=== PATIENT | male | born 1955 | race Caucasian/White ===

== ENCOUNTER 2017-08-25 21:41 | Inpatient (IN) | payer OTHER ==
[2017-08-26 01:29] LABS: Glucose,Whole Blood 118 mg/dL (75-99)
[2017-08-26] MEDS ORDERED: ACETAMINOPHEN TAB 325 MG TAB PO PRN (01:52)
[2017-08-26 05:55] LABS: Glucose,Whole Blood 39 mg/dL (75-99)
[2017-08-26] MEDS: INSULIN ASPART 100 UNIT/ML 1 ML 10 ML VIAL SQ SCH ×4 (05:59→22:36)
[2017-08-26 06:21] LABS: Glucose,Whole Blood 71 mg/dL (75-99)
[2017-08-26 06:29] LABS: HCT 42.4 % (39.0-53.0); HGB 13.6 gm/dL (13.0-17.5); MCH 30.3 pg (25.0-35.0); MCHC 32.2 g/dL (31.0-37.0); MCV 94.3 fL (80.0-100.0); Mean Platelet Volume 8.1; Platelet Count 348 k/uL (150-450); RDW 13.9 % (11.5-15.5); WBC 13.7 k/uL (3.8-10.6)
[2017-08-26 06:36] LABS: ALT 29 U/L (21-72); AST 28 U/L (17-59); Albumin 3.1 g/dL (3.5-5.0); Alkaline Phosphatase 130 U/L (38-126); Anion Gap 7 mmol/L; Blood Urea Nitrogen 32 mg/dL (9-20); Calcium 8.9 mg/dL (8.4-10.2); Carbon Dioxide 27 mmol/L (22-30); Chloride 108 mmol/L (98-107); Phosphorus 2.9 mg/dL (2.5-4.5); Potassium 4.1 mmol/L (3.5-5.1); Sodium 142 mmol/L (137-145); Total Bilirubin 0.4 mg/dL (0.2-1.3); Total Protein 5.7 g/dL (6.3-8.2)
[2017-08-26 06:43] LABS: Glucose 32 mg/dL (74-99)
[2017-08-26] MEDS: SODIUM CHLORIDE 0.9% 1,000 ML IV SCH ×2 (06:52→23:23)
[2017-08-26 07:15] LABS: Eosinophils # (M) 0.14 k/uL (0-0.7); Lymphocytes # (M) 5.62 k/uL (1.0-4.8); Monocytes # (M) 0.69 k/uL (0-1.0); Neutrophils # (M) 7.26 k/uL (1.3-7.7); Neutrophils % (M) 53 %; Nucleated Red Blood Cells 0 /100 WBC (0-0); Total Cells Counted 100
[2017-08-26] MEDS: metFORMIN 500 MG TAB PO SCH (08:17)
[2017-08-26] MEDS: ASPIRIN 325 MG TAB PO SCH (08:21)
[2017-08-26] MEDS: GABAPENTIN 300 MG CAP PO SCH ×3 (08:21→20:34)
[2017-08-26] MEDS: METOPROLOL TARTRATE 25 MG TAB PO SCH ×2 (08:21→20:34)
--- NOTE | 2017-08-26 11:00 | US ---
EXAMINATION TYPE: US carotid duplex BILAT DATE OF EXAM: 08/26/2017 COMPARISON: NONE CLINICAL HISTORY: left side weakness . Left arm and leg weakness per patient. EXAM MEASUREMENTS: RIGHT: Peak Systolic Velocity (PSV) cm/sec ----- Right CCA: 69.1 ----- Right ICA: 64.7 ----- Right ECA: 98.5 ICA/CCA ratio: 0.9 RIGHT: End Diastole cm/sec ----- Right CCA: 8.7 ----- Right ICA: 16.4 ----- Right ECA: 7.3 LEFT: Peak Systolic Velocity (PSV) cm/sec ----- Left CCA: 82.8 ----- Left ICA: 82.3 ----- Left ECA: 249.8 ICA/CCA ratio: 1.0 LEFT: End Diastole cm/sec ----- Left CCA: 16.7 ----- Left ICA: 24.1 ----- Left ECA: 15.6 VERTEBRALS (direction of flow): Right Vertebral: Antegrade Left Vertebral: Antegrade Rhythm: Normal Grayscale images show mild to moderate eccentric plaque at bilateral carotid bulbs. There is slightly more prominent moderate to severe plaque in the visualized left internal carotid artery. Velocity me asurements and ratios in visualized portion of both internal carotid arteries is within normal limits . Increased velocity noted in left external carotid artery. IMPRESSION: Fairly moderate atherosclerotic change bilaterally without hemodynamically significant s tenosis seen in either internal carotid artery
[2017-08-26 11:22] LABS: Glucose,Whole Blood 313 mg/dL (75-99)
[2017-08-26] MEDS: MULTIVITAMINS, THERA 1 EACH TAB PO SCH (12:32)
[2017-08-26] MEDS: LISINOPRIL-HCTZ 20-25 MG 1 EACH TAB PO SCH (12:32)
[2017-08-26] MEDS: DULoxetine HCL 60 MG CAPSULE.DR PO SCH (12:32)
[2017-08-26] MEDS: CHOLECALCIFEROL 1,000 UNIT TAB PO SCH (12:32)
[2017-08-26] MEDS: INSULIN DETEMIR 100 UNIT/ML 10 ML VIAL SQ SCH (12:33)
[2017-08-26 13:10] LABS: Hemoglobin A1C 11.1 % (4.0-6.0)
--- NOTE | 2017-08-26 13:41 | MR ---
EXAMINATION TYPE: MR brain wo con DATE OF EXAM: 08/26/2017 COMPARISON: NONE HISTORY: left side weakness CONTRAST: Performed utilizing 0 mL intravenous Gadavist gadolinium contrast. TECHNIQUE: Multiplanar, multiecho imaging on a 3.0 Gaviota magnet is performed through the brain. Stud y is performed within 24 hours of arrival to the hospital. The craniovertebral junction is normal. The pituitary is normal. Diffusion-weighted imaging is performed. There is hyperintensity in the posterior right periventricu lar region extending into the thalamus and posterior medial right basal ganglion compatible with acut e ischemic change. Correlate with the patient's symptoms. Obvious acute ischemic areas identified on T2 and inversion recovery weighted sequences is well. Ryan tionally, there are scattered punctate deep white matter changes which are nonspecific could be relat ed to microvascular ischemic change. Ventricles and sulci are somewhat prominent for the patient age. IMPRESSIONS: 1. Acute ischemic change in the right zaman radiata adjacent to the right lateral ventricle extendin g into the posterior medial right basal ganglion. 2. Atrophy with punctate white matter ischemic changes.
[2017-08-26 13:45] VITALS: BMI 32.7
--- NOTE | 2017-08-26 15:47 | P.CNNES ---
History of Present Illness Consult date: 08/26/17 Reason for Consult: Patient admitted with left sided weakness and stroke. History of Present Illness: This patient is a 61-year-old right-handed white male who was in his usual state of health on Saturday. Patient states he was at home and was working outdoors when he noticed some generalized weakness. He was just not feeling well. He apparently walked to his truck and fell down and needed to have his brother helped him back into the house. He apparently went from the living room to the kitchen and collapsed again. The family decided to take him to the local hospital in [place] where he was evaluated for generalized weakness. He underwent initial computed tomography scan of the brain which was reported negative and he was advised to follow-up if symptoms recurred. Apparently the patient went home on 08/24/2017 and felt somewhat better. The next day he noticed increasing symptoms of left-sided weakness that seemed to worsen to the point that he could not lift his arm or leg very well. His brother once again had to assist him. He was taken again to the emergency room at [facility] on 08/25/2017 and had a repeat computed tomography scan of the brain performed. This CAT scan revealed areas of decreased attenuation in the right basal ganglia suggesting an acute to subacute stroke. No acute intracranial hemorrhage or midline shift was noted. Due to this finding on the follow-up computed tomography scan of the brain the patient was transferred by EMS to [facility] for further stroke evaluation. Patient denies any previous history of stroke. He does have several stroke risk factors including diabetes mellitus, hyperlipidemia, and hypertension. The patient states that he follows regularly at the [facility] in [place]. He apparently ran out of some of his medications. He states his diabetes is being treated with insulin. He is not aware of his last hemoglobin A1c. The patient was admitted to [facility] late last night. He was able to complete a MRI of the brain today. This MRI was reviewed and does reveal evidence of a acute ischemic change involving the right zaman radiata and adjacent to the right ventricle extending into the right basal ganglia. This appears to be 2 distinct areas of infarction on the MRI study today. We have reviewed the results of the MRI today with the patient. He states he continues to have significant left-sided hemiparesis. His examination today in his room this afternoon reveals him to have a left facial droop as well as significant left- sided hemiparesis involving arm and leg. Muscle strength is 2/5 on his left side. Patient's speech appears to be intact at this time. We have recommended that he should be placed on one adult aspirin 325 mg daily for secondary stroke prevention. We would recommend a cardiology consultation for evaluation for possible LESLI procedure for this patient. His major stroke risk factor at this time appears to be his diabetes mellitus and hyperlipidemia. We will obtain laboratory testing for further assessment. Patient is now admitted for a complete stroke evaluation and further recommendations. Would agree with physical therapy and occupational therapy assessment for the patient. He will likely require inpatient subacute rehab at [facility]. Dr. Braswell has been consulted. This patient's overall prognosis at this time remains guarded. Neurology is now been consulted for further evaluation and recommendations. Review of Systems Constitutional: Denies chills, Denies fever Eyes: denies blurred vision, denies pain Ears, nose, mouth and throat: Denies headache, Denies sore throat Cardiovascular: Denies chest pain, Denies shortness of breath Respiratory: Denies cough Gastrointestinal: Denies abdominal pain, Denies diarrhea, Denies nausea, Denies vomiting Musculoskeletal: Denies myalgias Integumentary: Denies pruritus, Denies rash Neurological: Reports lack of coordination, Reports paresthesias, Reports tingling, Denies numbness, Denies weakness Psychiatric: Denies anxiety, Denies depression Endocrine: Denies fatigue, Denies weight change Past Medical History Past Medical History: Diabetes Mellitus, Hypertension History of Any Multi-Drug Resistant Organisms: None Reported Past Surgical History: Orthopedic Surgery Past Anesthesia/Blood Transfusion Reactions: No Reported Reaction Past Psychological History: Depression Smoking Status: Current every day smoker - Past Family History Mother Family Medical History: Unable to Obtain Father Family Medical History: Unable to Obtain Medications and Allergies Home Medications Medication Instructions Recorded Confirmed Type Aspirin [Adult Low Dose Aspirin EC] 162 mg PO DAILY 08/26/17 08/26/17 History Atorvastatin [Lipitor] 80 mg PO HS 08/26/17 08/26/17 History Cholecalciferol [Vitamin D3] 1,000 unit PO DAILY 08/26/17 08/26/17 History DULoxetine HCL [Cymbalta] 60 mg PO DAILY 08/26/17 08/26/17 History Gabapentin [Neurontin] 600 mg PO TID 08/26/17 08/26/17 History Insulin Aspart [NovoLOG 12 unit SQ AC-TID 08/26/17 08/26/17 History (formulary)] Insulin Aspart [Novolog Flexpen] See Protocol SQ AC-TID 08/26/17 08/26/17 History Insulin Glargine [Lantus] 40 unit SQ HS 08/26/17 08/26/17 History Lisinopril-Hctz 20-25 mg 2 tab PO DAILY 08/26/17 08/26/17 History [Zestoretic 20-25] Metoprolol Tartrate [Lopressor] 25 mg PO BID 08/26/17 08/26/17 History Multivitamin [Men's Multi-Vitamin] 1 tab PO DAILY 08/26/17 08/26/17 History metFORMIN HCL [Glucophage] 500 mg PO DAILY 08/26/17 08/26/17 History Allergies Allergy/AdvReac Type Severity Reaction Status Date / Time "antibiotic that starts with Allergy Unknown Uncoded 08/26/17 01:33 an A" Childhood Physical Examination - Vital Signs Vital Signs: Vital Signs Temp Pulse Pulse Resp BP BP Pulse Ox 08/26/17 11:00 98.3 F 75 16 223/92 97 08/26/17 08:10 97.8 F 65 16 175/78 94 L 08/26/17 04:00 61 18 164/97 94 L 08/26/17 01:52 188/78 178/80 08/26/17 01:15 183/81 212/88 08/26/17 00:52 98.2 F 62 18 192/99 96 Intake and Output 08/26/17 08/26/17 08/26/17 06:59 14:59 22:59 Intake Total 480 Output Total 700 650 Balance -700 -170 Intake: Oral 480 Output: Urine 700 650 Other: Voiding Method Urinal Urinal # Voids 0 Weight 109.5 kg 109.5 kg Patient Weight 08/27/17 06:59 Weight 109.5 kg - Constitutional General appearance: average body habitus, cooperative - EENT EENT: PERRL, mucous membranes moist - Respiratory Respiratory: lungs clear, normal breath sounds - Cardiovascular Cardiovascular: regular rate, normal S1, normal S2 Extremities: no peripheral edema bilaterally - Gastrointestinal Gastrointestinal: normoactive bowel sounds - Integumentary Integumentary: normal - Neurologic Cranial nerve examination: PERRL, EOMI, VFF, V1/V2/V3 grossly intact, tongue midline, intact gag reflex, intact corneal reflex, facial droop (Patient has a left upper motor neuron facial weakness pattern.), normal palatal elevation Speech examination: intact Sensorimotor examination: intact Motor examination - right side: 5/5: biceps, triceps, wrist flexion, wrist extension, food mixer assembler, hip flexors, knee extensors, dorsiflexion, toe extension (EHL) , plantarflexion Motor examination - left side: 2/5: biceps, triceps, wrist flexion, hip flexors , knee extensors, dorsiflexion, toe extension (EHL), plantarflexion, 3/5: wrist extension, food mixer assembler Detailed sensory examination: intact Reflex and gait examination: intact Reflexes: 1+: ankle, bicep, knee, tricep - Musculoskeletal Musculoskeletal: no pain - Psychiatric Psychiatric: mood/affect appropriate, cooperative Results - Laboratory Findings CBC and BMP: 08/26/17 05:36 08/26/17 05:36 Abnormal Lab Findings: Abnormal Labs 08/26/17 08/26/17 08/26/17 01:27 05:36 05:36 WBC 13.7 H Lymphocytes # (Manual) 5.62 H Chloride BUN Glucose POC Glucose (mg/dL) 118 H Hemoglobin A1c 11.1 H Alkaline Phosphatase Total Protein Albumin 08/26/17 08/26/17 08/26/17 05:36 05:53 06:19 WBC Lymphocytes # (Manual) Chloride 108 H BUN 32 H Glucose 32 L* POC Glucose (mg/dL) 39 L 71 L Hemoglobin A1c Alkaline Phosphatase 130 H Total Protein 5.7 L Albumin 3.1 L 08/26/17 11:21 WBC Lymphocytes # (Manual) Chloride BUN Glucose POC Glucose (mg/dL) 313 H Hemoglobin A1c Alkaline Phosphatase Total Protein Albumin Assessment and Plan (1) Acute right arterial ischemic stroke, MCA (middle cerebral artery) Current Visit: Yes Status: Acute Code(s): I63.511 - CEREB INFRC D/T UNSP OCCLS OR STENOS OF RIGHT MID CEREB ART SNOMED Code(s): 756299224 (2) Diabetes mellitus Current Visit: Yes Status: Acute Code(s): E11.9 - TYPE 2 DIABETES MELLITUS WITHOUT COMPLICATIONS SNOMED Code(s): 91366111 (3) Hyperlipidemia Current Visit: Yes Status: Acute Code(s): E78.5 - HYPERLIPIDEMIA, UNSPECIFIED SNOMED Code(s): 30202297 (4) Hypertension Current Visit: Yes Status: Acute Code(s): I10 - ESSENTIAL (PRIMARY) HYPERTENSION SNOMED Code(s): 72022558 Plan: This patient is a 61-year-old male who initially presented to [facility] on Saturday with symptoms of recurrent fall and weak generalized weakness. He was seen in the ER and underwent a computed tomography scan of the brain which was reported negative for any acute changes. He was discharged from the ER to home. He apparently had several falls at home in which his brother had to assist him. He was now noted to have significant left-sided weakness. He was taken back to the emergency room at [facility] for evaluation. He was seen in the ER yesterday at [facility]. He had a repeat computed tomography scan of the brain results of which indicated a possible acute versus subacute stroke in the right basal ganglia. He was transferred last night to [facility] for a complete stroke evaluation. Patient underwent MRI of the brain today the results of which are noted above. MRI does reveal evidence of an acute right MCA stroke in 2 areas of infarction is noted in the MRI. We have recommended a complete stroke evaluation for the patient. He underwent a carotid Doppler ultrasound which failed to reveal any significant carotid artery stenosis. We have recommended the patient to be evaluated by cardiology for possible LESLI procedure. He is to be maintained on one adult aspirin for secondary stroke prevention. Dr. Braswell has been consulted for possible inpatient rehab. We'll await further recommendations from PT OT as well. This patient's overall prognosis at this time remains very guarded. We have discussed the MRI findings in detail today with the patient. All of his questions were answered to the best of our ability. We will continue close neurological follow-up for the patient. His overall prognosis at this time remains very guarded. Time with Patient: Greater than 30
[2017-08-26] MEDS: amLODIPine 5 MG TAB PO SCH (16:07)
[2017-08-26 16:36] LABS: Glucose,Whole Blood 93 mg/dL (75-99)
--- NOTE | 2017-08-26 17:12 | P.HPIM ---
History of Present Illness H&P Date: 08/26/17 Chief Complaint: Left-sided weakness and fall Patient is a 61-year-old male with a known history of hypertension, diabetes type 2 insulin-dependent and diabetic peripheral neuropathy was sent from [facility] for possible acute CVA. Aberrantly patient had generalized weakness after he got out of truck and suddenly collapsed and was on ground for about 45 minutes until his brother found him and called EMS. Patient was taken to [facility] where he had initial CT head which was reported negative and was advised to follow-up if symptoms. Patient says that the next day he noticed increased weakness on the left side and fell again. Patient was taken to ER at [facility] again on 08/25/2017 where he had repeat CT head showed acute to subacute CVA involving right basilar ganglia. Patient was transferred to [facility] for further stroke evaluation. Patient usually follows with [facility] Patient had carotid duplex and MRI was done. MRI showed acute ischemic changes in the right coronary radiata adjacent to the right lateral ventricle extending into the posterior medial right basilar ganglia. Atropine with punctate white matter ischemic changes. LESLI was recommended as per neurology evaluation. Patient otherwise denied any cough or sputum production. No fever no chills. No recent illnesses or sick contacts. Review of Systems Constitutional: Patient denies any fever or chills . No generalized weakness or weight loss. Abdomen: Patient denied nausea vomiting and diarrhea and abdominal pain. Cardiovascular: Patient denies any chest pain or short of breath no palpitations. Respiratory: patient denied any cough is from production. No shortness of breath Neurologic: Left-sided weakness. Patient denied any numbness or tingling headache. Musculoskeletal: Patient denies any complaints of joint swelling or deformity. Skin: Negative Psychiatric: Negative Endocrine: No heat or cold intolerance. No recent weight gain. Genitourinary: No dysuria or hematuria. All other 14 point ROS negative except the above Past Medical History Past Medical History: Diabetes Mellitus, Hypertension History of Any Multi-Drug Resistant Organisms: None Reported Past Surgical History: Orthopedic Surgery Past Anesthesia/Blood Transfusion Reactions: No Reported Reaction Past Psychological History: Depression Smoking Status: Current every day smoker - Past Family History Mother Family Medical History: Unable to Obtain Father Family Medical History: Unable to Obtain Medications and Allergies Home Medications Medication Instructions Recorded Confirmed Type Aspirin [Adult Low Dose Aspirin EC] 162 mg PO DAILY 08/26/17 08/26/17 History Atorvastatin [Lipitor] 80 mg PO HS 08/26/17 08/26/17 History Cholecalciferol [Vitamin D3] 1,000 unit PO DAILY 08/26/17 08/26/17 History DULoxetine HCL [Cymbalta] 60 mg PO DAILY 08/26/17 08/26/17 History Gabapentin [Neurontin] 600 mg PO TID 08/26/17 08/26/17 History Insulin Aspart [NovoLOG 12 unit SQ AC-TID 08/26/17 08/26/17 History (formulary)] Insulin Aspart [Novolog Flexpen] See Protocol SQ AC-TID 08/26/17 08/26/17 History Insulin Glargine [Lantus] 40 unit SQ HS 08/26/17 08/26/17 History Lisinopril-Hctz 20-25 mg 2 tab PO DAILY 08/26/17 08/26/17 History [Zestoretic 20-25] Metoprolol Tartrate [Lopressor] 25 mg PO BID 08/26/17 08/26/17 History Multivitamin [Men's Multi-Vitamin] 1 tab PO DAILY 08/26/17 08/26/17 History metFORMIN HCL [Glucophage] 500 mg PO DAILY 08/26/17 08/26/17 History Allergies Allergy/AdvReac Type Severity Reaction Status Date / Time "antibiotic that starts with Allergy Unknown Uncoded 08/26/17 01:33 an A" Childhood Physical Exam Vitals: Vital Signs Temp Pulse Pulse Resp BP BP Pulse Ox 08/26/17 11:00 98.3 F 75 16 223/92 97 08/26/17 08:10 97.8 F 65 16 175/78 94 L 08/26/17 04:00 61 18 164/97 94 L 08/26/17 01:52 188/78 178/80 08/26/17 01:15 183/81 212/88 08/26/17 00:52 98.2 F 62 18 192/99 96 Intake and Output 08/25/17 08/26/17 08/26/17 22:59 06:59 14:59 Intake Total 240 Output Total 700 Balance -700 240 Intake: Oral 240 Output: Urine 700 Other: Voiding Method Urinal Urinal # Voids 0 Weight 109.5 kg PHYSICAL EXAMINATION: Patient is lying in the bed comfortably, no acute distress, awake alert and oriented.. HEENT: Normocephalic. Neck is supple. Pupils reactive. Nostrils clear. Oral cavity is moist. Ears reveal no drainage. Neck reveals no JVD, carotid bruits, or thyromegaly. CHEST EXAMINATION: Trachea is central. Symmetrical expansion. Lung campos clear to auscultation and percussion. CARDIAC: Normal S1, S2 with no gallops. No murmurs ABDOMEN: Soft. Bowel sounds normal. No organomegaly. No abdominal bruits. Extremities: reveal no edema. No clubbing or cyanosis Neurologically awake, alert, oriented x3 with well-coordinated movements. Left- sided weakness 3/5 motor UE and 2/5 lower extremity. Skin: No rash or skin lesions. Psychiatric: Cooperative. Nonsuicidal Musculoskeletal: No joint swelling or deformity. Normal range of motion. Results CBC & Chem 7: 08/26/17 05:36 08/26/17 05:36 Labs: Abnormal Lab Results - Last 24 Hours (Table) 08/26/17 08/26/17 08/26/17 Range/Units 01:27 05:36 05:36 WBC 13.7 H (3.8-10.6) k/uL Lymphocytes # (Manual) 5.62 H (1.0-4.8) k/uL Chloride 108 H (98-107) mmol/L BUN 32 H (9-20) mg/dL Glucose 32 L* (74-99) mg/dL POC Glucose (mg/dL) 118 H (75-99) mg/dL Alkaline Phosphatase 130 H (38-126) U/L Total Protein 5.7 L (6.3-8.2) g/dL Albumin 3.1 L (3.5-5.0) g/dL 08/26/17 08/26/17 08/26/17 Range/Units 05:53 06:19 11:21 WBC (3.8-10.6) k/uL Lymphocytes # (Manual) (1.0-4.8) k/uL Chloride (98-107) mmol/L BUN (9-20) mg/dL Glucose (74-99) mg/dL POC Glucose (mg/dL) 39 L 71 L 313 H (75-99) mg/dL Alkaline Phosphatase (38-126) U/L Total Protein (6.3-8.2) g/dL Albumin (3.5-5.0) g/dL Thrombosis Risk Factor Assmnt - DVT/VTE Prophylaxis DVT/VTE Prophylaxis: Pharmacologic Prophylaxis ordered - Choose All That Apply Each Factor Represents 1 point: Age 41-60 years Thrombosis Risk Factor Assessment Total Risk Factor Score: 1 Thrombosis Risk Factor Assessment Level: Low Risk Assessment and Plan Assessment: Acute ischemic CVA with left-sided weakness Hypertension Diabetes type 2 insulin-dependent. Uncontrolled with his B A1c 11.1 Hyperlipidemia Diabetic peripheral neuropathy Hypoglycemia DVT prophylaxis Osteoarthritis Plan: Patient be continued on aspirin. Dose increased to 325 mg daily. Will check lipid panel. MRI of the brain was done. Carotid duplex showed no significant stenosis. Neurology is following. Continue with Levemir 40 units subcu along with metformin and sliding scale. We'll monitor CBC closely. Avoid hypoglycemia. Patient able to tolerate oral diet. PT OT was consulted and rehab consulted as well. Further recommendations based on the clinical course. Time with Patient: Greater than 30
--- NOTE | 2017-08-26 19:16 | ECHOF ---
Referral Reason:left side weakness MEASUREMENTS -------- HEIGHT: 182.9 cm WEIGHT: 109.8 kg BP: 164/97 RVIDd: 3.8 cm (< 3.3) IVSd: 1.5 cm (0.6 - 1.1) LVIDd: 3.9 cm (3.9 - 5.3) LVPWd: 1.5 cm (0.6 - 1.1) IVSs: 2.1 cm LVIDs: 2.6 cm LVPWs: 1.7 cm LA Diam: 3.2 cm (2.7 - 3.8) LAESV Index (A-L): 26.28 ml/m Ao Diam: 3.7 cm (2.0 - 3.7) AV Cusp: 2.1 cm (1.5 - 2.6) MV EXCURSION: 18.807 mm (> 18.000) MV EF SLOPE: 126 mm/s (70 - 150) EPSS: 0.3 cm MV E Gordo: 0.95 m/s MV DecT: 320 ms MV A Gordo: 1.17 m/s MV E/A Ratio: 0.81 RAP: 5.00 mmHg RVSP: 14.95 mmHg FINDINGS -------- Sinus rhythm. This was a technically adequate study. The left ventricular size is normal. There is moderate concentric left ventricular hypertrophy. O verall left ventricular systolic function is normal with, an EF between 55 - 60 %. The right ventricle is mildly enlarged. Normal LA size by volume 22+/-6 ml/m2. The right atrium is normal in size. The aortic valve was not well visualized. Mild mitral annular calcification present. Mild tricuspid regurgitation present. Right ventricular systolic pressure is normal at < 35 mmHg. The pulmonic valve was not well visualized. The aortic root is dilated measuring 3.7cm. IVC Not well visulized. There is no pericardial effusion. CONCLUSIONS -------- 1. Sinus rhythm. 2. This was a technically adequate study. 3. The left ventricular size is normal. 4. There is moderate concentric left ventricular hypertrophy. 5. Overall left ventricular systolic function is normal with, an EF between 55 - 60 %. 6. The right ventricle is mildly enlarged. 7. Normal LA size by volume 22+/-6 ml/m2. 8. The right atrium is normal in size. 9. The aortic valve was not well visualized. 10. Mild mitral annular calcification present. 11. Mild tricuspid regurgitation present. 12. Right ventricular systolic pressure is normal at < 35 mmHg. 13. The pulmonic valve was not well visualized. 14. The aortic root is dilated measuring 3.7cm. 15. IVC Not well visulized. 16. There is no pericardial effusion. NEEDLE BOARD REPAIRER: Kathya Ya RDCS
[2017-08-26] MEDS: ATORVASTATIN 80 MG TAB PO SCH (20:34)
[2017-08-26] MEDS: HEPARIN SODIUM,PORCINE 5,000 UNIT/ML 1 ML VIAL SQ SCH (20:34)
[2017-08-26 21:00] LABS: Glucose,Whole Blood 139 mg/dL (75-99)
[2017-08-26] MEDS ORDERED: ATORVASTATIN 20 MG TAB PO SCH (21:00)
[2017-08-26] MEDS ORDERED: INSULIN GLARGINE 40 UNIT SQ SCH (21:00)
[2017-08-27 03:29] LABS: Cholesterol 183 mg/dL (<200); HDL Cholesterol 50 mg/dL (40-60); LDL Cholesterol,Calculated 109 mg/dL (0-99); Triglycerides 119 mg/dL (<150)
[2017-08-27 06:16] LABS: Glucose,Whole Blood 44 mg/dL (75-99)
[2017-08-27] MEDS: INSULIN ASPART 100 UNIT/ML 1 ML 10 ML VIAL SQ SCH ×6 (06:18→21:47)
[2017-08-27] MEDS: metFORMIN 500 MG TAB PO SCH (06:19)
[2017-08-27 06:38] LABS: Glucose,Whole Blood 53 mg/dL (75-99)
[2017-08-27 07:02] LABS: Glucose,Whole Blood 84 mg/dL (75-99)
--- NOTE | 2017-08-27 08:09 | P.CONS ---
History of Present Illness - Chief Complaint Gait disturbance, left hemiparesthesias - History of Present Illness I had the op to see patient for inpatient rehab consultation with regard to gait disturbance. He was admitted to [facility] yesterday acute onset left-sided weakness. Carotid Doppler demonstrates bilateral carotid disease. Brain MRI demonstrates acute attenuation right zaman radiata as well as atrophy and multiple punctate lesions. PT and OT prescribed and I have added SCALER PACKER. Previous functional history as elicited from patient: 61-year-old right-handed white male who is single lives and 2 floor home with brother. Originally from [place]. Brother does the driving. They share the cooking and laundry. Patient is on disability related to left-sided problem. Describes independent with standing shower and gait without device although does describe using cruising technique previously. Unsure if he had left hemiparesthesias previously but denies stroke. Review of Systems Review of systems: ENT: Denies sneezes or discharge. Eyes: Denies discharge or photophobia. Cardiac: Denies chest pain or palpitation. Pulmonary: Denies cough or shortness of breath. Gastrointestinal: Denies nausea, emesis, constipation, diarrhea. Genitourinary: Denies discharge or frequency. Musculoskeletal: Denies muscle or bone aches. Neurologic: Left-sided weakness and numbness. Endocrine: Denies shakes or sweats. Oncology: Denies cancers. Dermatologic: Denies rash, itching, pruritus. ALLERGY/immunology: Denies sneezes, rashes. Past Medical History Past Medical History: Diabetes Mellitus, Hypertension History of Any Multi-Drug Resistant Organisms: None Reported Past Surgical History: Orthopedic Surgery Past Anesthesia/Blood Transfusion Reactions: No Reported Reaction Past Psychological History: Depression Smoking Status: Current every day smoker - Past Family History Mother Family Medical History: Unable to Obtain Father Family Medical History: Unable to Obtain Medications and Allergies Home Medications Medication Instructions Recorded Confirmed Type Aspirin [Adult Low Dose Aspirin EC] 162 mg PO DAILY 08/26/17 08/26/17 History Atorvastatin [Lipitor] 80 mg PO HS 08/26/17 08/26/17 History Cholecalciferol [Vitamin D3] 1,000 unit PO DAILY 08/26/17 08/26/17 History DULoxetine HCL [Cymbalta] 60 mg PO DAILY 08/26/17 08/26/17 History Gabapentin [Neurontin] 600 mg PO TID 08/26/17 08/26/17 History Insulin Aspart [NovoLOG 12 unit SQ AC-TID 08/26/17 08/26/17 History (formulary)] Insulin Aspart [Novolog Flexpen] See Protocol SQ AC-TID 08/26/17 08/26/17 History Insulin Glargine [Lantus] 40 unit SQ HS 08/26/17 08/26/17 History Lisinopril-Hctz 20-25 mg 2 tab PO DAILY 08/26/17 08/26/17 History [Zestoretic 20-25] Metoprolol Tartrate [Lopressor] 25 mg PO BID 08/26/17 08/26/17 History Multivitamin [Men's Multi-Vitamin] 1 tab PO DAILY 08/26/17 08/26/17 History metFORMIN HCL [Glucophage] 500 mg PO DAILY 08/26/17 08/26/17 History Allergies Allergy/AdvReac Type Severity Reaction Status Date / Time "antibiotic that starts with Allergy Unknown Uncoded 08/26/17 01:33 an A" Childhood Physical Exam Vitals: Vital Signs Temp Pulse Pulse Resp BP Pulse Ox 08/27/17 04:00 97 F L 61 18 148/77 94 L 08/27/17 00:00 64 18 169/79 92 L 08/26/17 20:00 98.7 F 71 71 18 185/81 93 L 08/26/17 15:00 64 16 174/84 94 L 08/26/17 11:00 98.3 F 75 16 223/92 97 08/26/17 08:10 97.8 F 65 16 175/78 94 L Intake and Output 08/26/17 08/27/17 08/27/17 22:59 06:59 14:59 Intake Total 240 Output Total 850 1800 Balance -610 -1800 Intake: Oral 240 Output: Urine 850 1800 Other: Voiding Method Urinal Urinal Weight 113 kg Skin: Good color, texture, turgor. General: Medium build and comfortable appearance. Head: Normocephalic, atraumatic. Eyes: Symmetric. Pupils equal round. Ears: Symmetric. Hearing within normal limits. Mouth: Clear. Neck: Supple. Carotid without bruit. Cardiac: Regular rate and rhythm. Lungs: Clear anteriorly and posteriorly. Abdomen: Soft active nontender. Extremities: Normal tone. Neurological: Mental status: Alert, cooperative, pleasant. Cranial nerves: Symmetric facial tone and trapezius. Motor: Normal strength and isolation right side. Active movement left arm with elements of isolation. Left leg poor. Sensation: Intact throughout right side and depressed left side. DTRs: Symmetric and equal throughout. Mobility: Requires minimal to moderate assistance for bed mobility. Results CBC & Chem 7: 08/26/17 05:36 08/26/17 05:36 Labs: Abnormal Lab Results - Last 24 Hours (Table) 08/26/17 08/26/17 08/26/17 Range/Units 05:36 05:36 11:21 POC Glucose (mg/dL) 313 H (75-99) mg/dL Hemoglobin A1c 11.1 H (4.0-6.0) % LDL Cholesterol, Calc 109 H (0-99) mg/dL 08/26/17 08/27/17 08/27/17 Range/Units 20:59 06:13 06:36 POC Glucose (mg/dL) 139 H 44 L 53 L (75-99) mg/dL Hemoglobin A1c (4.0-6.0) % LDL Cholesterol, Calc (0-99) mg/dL MRI - head: report reviewed (Acute lesion right zaman radiata. Atrophy and multiple punctate lesions otherwise.) Assessment and Plan (1) Acute right arterial ischemic stroke, MCA (middle cerebral artery) Current Visit: Yes Status: Acute Code(s): I63.511 - CEREB INFRC D/T UNSP OCCLS OR STENOS OF RIGHT MID CEREB ART SNOMED Code(s): 018747842 Plan: Impression: 1. Gait disturbance. 2. Acute right MCA/zaman radiata infarct resultant left hemiparesthesias. 3. Diabetes. 4. Hypertension. Comments and plan: At this time PT, OT, SCALER PACKER ordered. We'll follow therapies with yourself. Discussed possible need and benefit of inpatient rehab with patient.
[2017-08-27] MEDS: DULoxetine HCL 60 MG CAPSULE.DR PO SCH (08:57)
[2017-08-27] MEDS: ASPIRIN 325 MG TAB PO SCH (08:57)
[2017-08-27] MEDS: LISINOPRIL-HCTZ 20-25 MG 1 EACH TAB PO SCH (08:57)
[2017-08-27] MEDS: METOPROLOL TARTRATE 25 MG TAB PO SCH ×2 (08:57→21:43)
[2017-08-27] MEDS: amLODIPine 5 MG TAB PO SCH (08:57)
[2017-08-27] MEDS: GABAPENTIN 300 MG CAP PO SCH ×3 (08:57→21:44)
[2017-08-27] MEDS: HEPARIN SODIUM,PORCINE 5,000 UNIT/ML 1 ML VIAL SQ SCH ×2 (08:57→21:43)
[2017-08-27] MEDS: INSULIN DETEMIR 100 UNIT/ML 10 ML VIAL SQ SCH ×2 (10:48→13:10)
[2017-08-27 11:30] LABS: Glucose,Whole Blood 411 mg/dL (75-99)
--- NOTE | 2017-08-27 11:45 | P.CRDCN ---
History of Present Illness History of present illness: Patient interviewed and examined. Please see full dictation by nurse practitioner. admitted with an embolic stroke. Sinus mechanism no atrial fibrillation so far we will proceed with a LESLI. If he do not see any atrial fibrillation then an implanted loop monitor will be advised to look for atrial fibrillation. On atorvastatin 80 mg by mouth daily his lipid panel shows an LDL of 109. I would advise starting with Zetia 10 mg in addition to lower his LDL Impression Embolic CVA type 2 diabetes, insulin requiring Hypertension Diabetic peripheral neuropathy Past Medical History Past Medical History: Diabetes Mellitus, Hypertension History of Any Multi-Drug Resistant Organisms: None Reported Past Surgical History: Orthopedic Surgery Past Anesthesia/Blood Transfusion Reactions: No Reported Reaction Past Psychological History: Depression Smoking Status: Current every day smoker - Past Family History Mother Family Medical History: Unable to Obtain Father Family Medical History: Unable to Obtain Medications and Allergies Home Medications Medication Instructions Recorded Confirmed Type Aspirin [Adult Low Dose Aspirin EC] 162 mg PO DAILY 08/26/17 08/26/17 History Atorvastatin [Lipitor] 80 mg PO HS 08/26/17 08/26/17 History Cholecalciferol [Vitamin D3] 1,000 unit PO DAILY 08/26/17 08/26/17 History DULoxetine HCL [Cymbalta] 60 mg PO DAILY 08/26/17 08/26/17 History Gabapentin [Neurontin] 600 mg PO TID 08/26/17 08/26/17 History Insulin Aspart [NovoLOG 12 unit SQ AC-TID 08/26/17 08/26/17 History (formulary)] Insulin Aspart [Novolog Flexpen] See Protocol SQ AC-TID 08/26/17 08/26/17 History Insulin Glargine [Lantus] 40 unit SQ HS 08/26/17 08/26/17 History Lisinopril-Hctz 20-25 mg 2 tab PO DAILY 08/26/17 08/26/17 History [Zestoretic 20-25] Metoprolol Tartrate [Lopressor] 25 mg PO BID 08/26/17 08/26/17 History Multivitamin [Men's Multi-Vitamin] 1 tab PO DAILY 08/26/17 08/26/17 History metFORMIN HCL [Glucophage] 500 mg PO DAILY 08/26/17 08/26/17 History Allergies Allergy/AdvReac Type Severity Reaction Status Date / Time "antibiotic that starts with Allergy Unknown Uncoded 08/26/17 01:33 an A" Childhood Physical Exam Vitals: Vital Signs Temp Pulse Pulse Pulse Resp BP Pulse Ox 08/27/17 08:00 97.7 F 69 18 152/74 95 08/27/17 04:00 97 F L 61 18 148/77 94 L 08/27/17 00:00 64 18 169/79 92 L 08/26/17 20:00 98.7 F 71 71 18 185/81 93 L 08/26/17 15:00 64 16 174/84 94 L Intake and Output 08/26/17 08/27/17 08/27/17 22:59 06:59 14:59 Intake Total 240 240 Output Total 850 1800 400 Balance -610 -1800 -160 Intake: Oral 240 240 Output: Urine 850 1800 400 Other: Voiding Method Urinal Urinal Weight 113 kg Results 08/26/17 05:36 08/26/17 05:36 Lipids 08/26/17 Range/Units 05:36 Triglycerides 119 (<150) mg/dL Cholesterol 183 (<200) mg/dL HDL Cholesterol 50 (40-60) mg/dL Current Medications Generic Name Dose Route Start Last Admin Trade Name Freq PRN Reason Stop Dose Admin Acetaminophen 650 mg 08/26/17 01:52 Tylenol Tab PO Q6HR PRN Fever and/ or Pain Amlodipine Besylate 5 mg 08/26/17 12:45 08/27/17 08:57 Norvasc PO 5 mg DAILY [facility] Administration Aspirin 325 mg 08/26/17 09:00 08/27/17 08:57 Aspirin PO 325 mg DAILY [facility] Administration Atorvastatin Calcium 80 mg 08/26/17 21:00 08/26/17 20:34 Lipitor PO 80 mg HS [facility] Administration Cholecalciferol 1,000 unit 08/26/17 12:00 08/26/17 12:32 Vitamin D3 PO 1,000 unit DAILY@1200 [facility] Administration Duloxetine HCl 60 mg 08/26/17 09:00 08/27/17 08:57 Cymbalta PO 60 mg DAILY [facility] Administration Gabapentin 600 mg 08/26/17 09:00 08/27/17 08:57 Neurontin PO 600 mg TID [facility] Administration Lisinopril/HCTZ 1 each 08/26/17 12:00 08/27/17 08:57 Zestoretic 20-25 PO 1 each DAILY [facility] Administration Heparin Sodium (Porcine) 5,000 unit 08/26/17 21:00 08/27/17 08:57 Heparin SQ 5,000 unit Q12HR [facility] Administration Sodium Chloride 1,000 mls @ 50 mls/hr 08/26/17 06:45 08/26/17 23:23 Saline 0.9% IV 50 mls/hr .Q20H [facility] Administration Insulin Aspart 0 unit 08/26/17 07:30 08/27/17 06:18 Novolog SQ Not Given ACHS [facility] Protocol Insulin Detemir 40 unit 08/26/17 12:30 08/27/17 10:48 Levemir SQ 40 unit DAILY [facility] Administration Metformin HCl 500 mg 08/26/17 07:30 08/27/17 06:19 Glucophage PO Not Given AC-BRKFST [facility] Metoprolol Tartrate 25 mg 08/26/17 09:00 08/27/17 08:57 Lopressor PO 25 mg BID [facility] Administration Multivitamins 1 each 08/26/17 12:00 08/26/17 12:32 Theragran PO 1 each DAILY@1200 [facility] Administration Intake and Output 08/26/17 08/27/17 08/27/17 22:59 06:59 14:59 Intake Total 240 240 Output Total 850 1800 400 Balance -610 -1800 -160 Intake: Oral 240 240 Output: Urine 850 1800 400 Other: Voiding Method Urinal Urinal Weight 113 kg 08/26/17 05:36 08/26/17 05:36
[2017-08-27] MEDS: CHOLECALCIFEROL 1,000 UNIT TAB PO SCH (13:37)
[2017-08-27] MEDS: MULTIVITAMINS, THERA 1 EACH TAB PO SCH (13:37)
--- NOTE | 2017-08-27 15:12 | P.CRDCN ---
History of Present Illness Consult date: 08/27/17 Requesting physician: Raimundo Mackay Reason for Consult (text): CVA Chief complaint: Possible CVA History of present illness: This is a 61-year-old right-handed white male who was in his usual state of health on Saturday. Patient states he was at home and was working outdoors when he noticed some generalized weakness. He was just not feeling well. He apparently walked to his truck and fell down and needed to have his brother helped him back into the house. He apparently went from the living room to the kitchen and collapsed again. The family decided to take him to the local hospital in [place] where he was evaluated for generalized weakness. He underwent initial computed tomography scan of the brain which was reported negative and he was advised to follow-up if symptoms recurred. Apparently the patient went home on 08/24/2017 and felt somewhat better. The next day he noticed increasing symptoms of left-sided weakness that seemed to worsen to the point that he could not lift his arm or leg very well. His brother once again had to assist him. He was taken again to the emergency room at [facility] on 08/25/2017 and had a repeat computed tomography scan of the brain performed. This CAT scan revealed areas of decreased attenuation in the right basal ganglia suggesting an acute to subacute stroke. No acute intracranial hemorrhage or midline shift was noted. Due to this finding on the follow-up computed tomography scan of the brain the patient was transferred by EMS to [facility] for further stroke evaluation. Patient denies any previous history of stroke. He does have several stroke risk factors including diabetes mellitus, hyperlipidemia, and hypertension. The patient states that he follows regularly at the [facility] in [place]. He apparently ran out of some of his medications. He states his diabetes is being treated with insulin. He is not aware of his last hemoglobin A1c. The patient was admitted to [facility] late last night. He was able to complete a MRI of the brain today. This MRI was reviewed and does reveal evidence of a acute ischemic change involving the right zaman radiata and adjacent to the right ventricle extending into the right basal ganglia. This appears to be 2 distinct areas of infarction on the MRI study today. We have reviewed the results of the MRI today with the patient. He states he continues to have significant left-sided hemiparesis. His examination today in his room this afternoon reveals him to have a left facial droop as well as significant left- sided hemiparesis involving arm and leg. Muscle strength is 2/5 on his left side. Patient's speech appears to be intact at this time. Blood pressure elevated this afternoon at 197/90, during the day today has been running in the 140s to 150s systolic. Heart rates in the 60s, he is afebrile. EKG shows a normal sinus rhythm, no evidence of any atrial fibrillation on the monitor thus far. Carotid Doppler study reveals fairly moderate atherosclerotic change bilaterally without hemodynamically significant stenosis. Echocardiogram with Doppler study was performed which revealed an ejection fraction of 55-60%. Cardiology was requested to see the patient to perform a LESLI, this will be done tomorrow by Dr. Dale. The risks and benefits were explained to the patient in detail. Past Medical History Past Medical History: Diabetes Mellitus, Hypertension History of Any Multi-Drug Resistant Organisms: None Reported Past Surgical History: Orthopedic Surgery Past Anesthesia/Blood Transfusion Reactions: No Reported Reaction Past Psychological History: Depression Smoking Status: Current every day smoker - Past Family History Mother Family Medical History: Unable to Obtain Father Family Medical History: Unable to Obtain Medications and Allergies Home Medications Medication Instructions Recorded Confirmed Type Aspirin [Adult Low Dose Aspirin EC] 162 mg PO DAILY 08/26/17 08/26/17 History Atorvastatin [Lipitor] 80 mg PO HS 08/26/17 08/26/17 History Cholecalciferol [Vitamin D3] 1,000 unit PO DAILY 08/26/17 08/26/17 History DULoxetine HCL [Cymbalta] 60 mg PO DAILY 08/26/17 08/26/17 History Gabapentin [Neurontin] 600 mg PO TID 08/26/17 08/26/17 History Insulin Aspart [NovoLOG 12 unit SQ AC-TID 08/26/17 08/26/17 History (formulary)] Insulin Aspart [Novolog Flexpen] See Protocol SQ AC-TID 08/26/17 08/26/17 History Insulin Glargine [Lantus] 40 unit SQ HS 08/26/17 08/26/17 History Lisinopril-Hctz 20-25 mg 2 tab PO DAILY 08/26/17 08/26/17 History [Zestoretic 20-25] Metoprolol Tartrate [Lopressor] 25 mg PO BID 08/26/17 08/26/17 History Multivitamin [Men's Multi-Vitamin] 1 tab PO DAILY 08/26/17 08/26/17 History metFORMIN HCL [Glucophage] 500 mg PO DAILY 08/26/17 08/26/17 History Allergies Allergy/AdvReac Type Severity Reaction Status Date / Time "antibiotic that starts with Allergy Unknown Uncoded 08/26/17 01:33 an A" Childhood Physical Exam Vitals: Vital Signs Temp Pulse Pulse Pulse Resp BP Pulse Ox 08/27/17 12:00 97.3 F L 61 18 197/90 93 L 08/27/17 08:00 97.7 F 69 18 152/74 95 08/27/17 04:00 97 F L 61 18 148/77 94 L 08/27/17 00:00 64 18 169/79 92 L 08/26/17 20:00 98.7 F 71 71 18 185/81 93 L 08/26/17 15:00 64 16 174/84 94 L Intake and Output 08/26/17 08/27/17 08/27/17 22:59 06:59 14:59 Intake Total 240 240 Output Total 850 1800 400 Balance -610 -1800 -160 Intake: Oral 240 240 Output: Urine 850 1800 400 Other: Voiding Method Urinal Urinal Weight 113 kg PHYSICAL EXAMINATION: HEENT: Head is atraumatic, normocephalic. Pupils equal, round. Neck is supple. There is no elevated jugular venous pressure. HEART EXAMINATION: Heart S1, S2 normal. No murmur or gallop heard. CHEST EXAMINATION: Lungs are clear to auscultation and precussion. No chest wall tenderness is noted on palpation or with deep breathing. ABDOMEN: Soft, nontender. Bowel sounds are heard. No organomegaly noted. EXTREMITIES: 2+ peripheral pulses with no evidence of peripheral edema and no calf tenderness noted. NEUROLOGIC patient is awake, alert and oriented -3. Left-sided facial droop noted. . Results 08/26/17 05:36 08/26/17 05:36 Lipids 08/26/17 Range/Units 05:36 Triglycerides 119 (<150) mg/dL Cholesterol 183 (<200) mg/dL HDL Cholesterol 50 (40-60) mg/dL Current Medications Generic Name Dose Route Start Last Admin Trade Name Freq PRN Reason Stop Dose Admin Acetaminophen 650 mg 03/05/18 01:52 Tylenol Tab PO Q6HR PRN Fever and/ or Pain Amlodipine Besylate 5 mg 08/26/17 12:45 08/27/17 08:57 Norvasc PO 5 mg DAILY [facility] Administration Aspirin 81 mg 08/28/17 09:00 Aspirin PO DAILY [facility] Atorvastatin Calcium 80 mg 08/26/17 21:00 08/26/17 20:34 Lipitor PO 80 mg HS [facility] Administration Cholecalciferol 1,000 unit 08/26/17 12:00 08/27/17 13:37 Vitamin D3 PO 1,000 unit DAILY@1200 [facility] Administration Duloxetine HCl 60 mg 08/26/17 09:00 08/27/17 08:57 Cymbalta PO 60 mg DAILY [facility] Administration Ezetimibe 10 mg 08/28/17 09:00 Zetia PO DAILY [facility] Gabapentin 600 mg 08/26/17 09:00 08/27/17 08:57 Neurontin PO 600 mg TID [facility] Administration Lisinopril/HCTZ 1 each 08/26/17 12:00 08/27/17 08:57 Zestoretic 20-25 PO 1 each DAILY [facility] Administration Heparin Sodium (Porcine) 5,000 unit 08/26/17 21:00 08/27/17 08:57 Heparin SQ 5,000 unit Q12HR [facility] Administration Sodium Chloride 1,000 mls @ 50 mls/hr 08/26/17 06:45 08/26/17 23:23 Saline 0.9% IV 50 mls/hr .Q20H [facility] Administration Insulin Aspart 0 unit 08/26/17 07:30 08/27/17 13:37 Novolog SQ 12 unit ACHS [facility] Administration Protocol Insulin Aspart 7 unit 08/27/17 12:30 08/27/17 13:10 Novolog SQ Not Given AC-TID [facility] Insulin Detemir 20 unit 08/27/17 12:00 08/27/17 13:10 Levemir SQ Not Given DAILY [facility] Metformin HCl 500 mg 08/26/17 07:30 08/27/17 06:19 Glucophage PO Not Given AC-BRKFST [facility] Metoprolol Tartrate 25 mg 08/26/17 09:00 08/27/17 08:57 Lopressor PO 25 mg BID [facility] Administration Multivitamins 1 each 08/26/17 12:00 08/27/17 13:37 Theragran PO 1 each DAILY@1200 [facility] Administration Intake and Output 08/26/17 08/27/17 08/27/17 22:59 06:59 14:59 Intake Total 240 240 Output Total 850 1800 400 Balance -610 -1800 -160 Intake: Oral 240 240 Output: Urine 850 1800 400 Other: Voiding Method Urinal Urinal Weight 113 kg 08/26/17 05:36 08/26/17 05:36 EKG Interpretations (text) EKG shows normal sinus rhythm with no acute changes. Assessment and Plan Plan: Assessment and plan #1 acute right arterial ischemic stroke #2 diabetes #3 hypertension #4 hyperlipidemia Plan Echocardiogram with Doppler study was obtained which revealed an ejection fraction of 55-60%. Patient will be scheduled to undergo transesophageal echocardiographic study tomorrow with Dr. Dale. The risks and benefits were explained to the patient in the use willing to proceed. We will also has that he had 10 mg daily to his medication regime. Patient does have elevated blood pressure, we do not acutely want to bring the blood pressure down in the setting of an acute stroke, we will continue to monitor and further recommendations will be made. DNP note has been reviewed, I agree with a documented findings and plan of care. Patient was seen and examined.
[2017-08-27 16:30] LABS: Glucose,Whole Blood 274 mg/dL (75-99)
--- NOTE | 2017-08-27 19:45 | EEG ---
ELECTROENCEPHALOGRAM REPORT DATE OF EE08/27/2017. REFERRING PHYSICIAN: Dr. Mackay. CONSULTING AND INTERPRETING PHYSICIAN: Dr. Lisandra Corey. INDICATION FOR EXAMINATION: This patient is a 61-year-old male, admitted with acute right hemispheric stroke and left-sided hemiparesis. AGE: 61. EEG FINDINGS: A routine 21 channel awake digital EEG recording was accomplished utilizing the 10-20 international system with bipolar and referential montages. The background activity in the most alert resting state consists of a low to medium amplitude, fairly well- developed and well-sustained 6-7 Hz activity over the posterior head regions. This posterior rhythm attenuates to eye opening. There is a small amount of low amplitude 18-20 Hz beta activity seen maximally over the anterior head regions. Muscle and movement artifact was observed on a few occasions during the tracing. Hyperventilation was not performed. Photic stimulation at flash frequencies of 2-30 Hz produced a minimal occipital driving response. No epileptiform discharges were seen. Toward the mid and lateral portion of the tracing, the patient does drift into spontaneous drowsiness. IMPRESSION: This EEG is moderately abnormal in a diffuse fashion due to slowing of the EEG background. The EEG failed to reveal any focal, lateralized or epileptiform abnormalities. Clinical correlation is recommended. MMODL / IJN: [id number] /
--- NOTE | 2017-08-27 20:28 | P.PN ---
Subjective Progress Note Date: 08/27/17 This patient is a 61-year-old male who recently suffered an acute right hemispheric stroke. The patient underwent MRI of the brain yesterday which did reveal evidence of 2 areas of acute ischemic stroke. We had recommended cardiology consultation for evaluation of need for LESLI procedure. He was seen by cardiology today and is being scheduled for LESLI procedure tomorrow. They're monitoring his blood pressure closely at this time. The patient was seen today by Dr. Braswell for possible inpatient rehab placement. He is awaiting further assessment from PT /OT and may be a good candidate for inpatient rehab at the time of discharge. Patient states he has been doing fairly well with slight improvement with this left-sided weakness. He is to continue on his aspirin and atorvastatin at this time for secondary stroke prevention. We will await further evaluation from cardiology and the LESLI testing to be completed tomorrow and will await their further recommendations. We will continue close neurological follow-up for the patient during this admission. Objective - Vital Signs Vital signs: Vital Signs Temp 98.4 F 08/27/17 16:00 Pulse 72 08/27/17 16:00 Resp 18 08/27/17 16:00 BP 173/83 08/27/17 16:00 Pulse Ox 93 L 08/27/17 16:00 Intake & Output 08/27/17 08/27/17 08/28/17 06:59 18:59 06:59 Intake Total 1360 Output Total 2300 1150 450 Balance -2300 210 -450 Weight 113 kg Intake: Intake, IV Titration 400 Amount Sodium Chloride 0.9% 1, 400 000 ml @ 50 mls/hr IV . Q20H [facility] Rx#:[id number] Oral 960 Output: Urine 2300 1150 450 Other: Voiding Method Urinal # Voids 1 # Bowel Movements 0 - Exam Physical examination: PHYSICAL EXAMINATION: Patient is resting comfortably in bed. VITAL SIGNS: Blood pressure is [173/83]. Heart rate is [72]. Respiration is [18] . Temperature is [98.4]. HEENT: Head is atraumatic, neck is supple, there were no carotid bruits. CHEST: Lungs are clear to auscultation and percussion. CARDIAC: S1, S2 normal rate and rhythm. There is no murmur. ABDOMEN: Soft and nontender. Bowel sounds are present. EXTREMITIES: There is no pedal edema. Peripheral pulses are present. Neurological examination: Patient's neurological examination today shows slight improvement with left- sided hemiparesis. - Labs CBC & Chem 7: 08/26/17 05:36 08/26/17 05:36 Labs: Abnormal Lab Results - Last 24 Hours (Table) 08/26/17 08/26/17 08/27/17 Range/Units 05:36 20:59 06:13 POC Glucose (mg/dL) 139 H 44 L (75-99) mg/dL LDL Cholesterol, Calc 109 H (0-99) mg/dL 08/27/17 08/27/17 08/27/17 Range/Units 06:36 11:18 16:25 POC Glucose (mg/dL) 53 L 411 H 274 H (75-99) mg/dL LDL Cholesterol, Calc (0-99) mg/dL Assessment and Plan (1) Acute right arterial ischemic stroke, MCA (middle cerebral artery) Current Visit: Yes Status: Acute Code(s): I63.511 - CEREB INFRC D/T UNSP OCCLS OR STENOS OF RIGHT MID CEREB ART SNOMED Code(s): 167205760 (2) Diabetes mellitus Current Visit: Yes Status: Acute Code(s): E11.9 - TYPE 2 DIABETES MELLITUS WITHOUT COMPLICATIONS SNOMED Code(s): 87120022 (3) Hyperlipidemia Current Visit: Yes Status: Acute Code(s): E78.5 - HYPERLIPIDEMIA, UNSPECIFIED SNOMED Code(s): 63591478 (4) Hypertension Current Visit: Yes Status: Acute Code(s): I10 - ESSENTIAL (PRIMARY) HYPERTENSION SNOMED Code(s): 63707590 Plan: Patient is admitted with acute left-sided weakness and subsequent MRI evidence of acute right hemispheric stroke. He was seen by cardiology today and will be undergoing a LESLI procedure tomorrow. He will also need an implanted loop monitor to further evaluate for paroxysmal atrial fibrillation. He was also recommended to start on Zetia for treatment of his hyperlipidemia. He has noted slight improvement with this left-sided hemiparesis. He was seen but today by Dr. Braswell for possible inpatient rehab. We will continue close neurological follow-up for the patient. So overall prognosis at this time remains guarded. We will await the results of his LESLI testing and we will give further recommendations pending those results. So overall prognosis at this time remains guarded.
[2017-08-27 20:47] LABS: Glucose,Whole Blood 120 mg/dL (75-99)
--- NOTE | 2017-08-27 21:38 | P.PN ---
Subjective Progress Note Date: 08/27/17 Principal diagnosis: Acute CVA with left-sided weakness Patient is a 61-year-old male with a known history of hypertension, diabetes type 2 insulin-dependent and diabetic peripheral neuropathy was sent from [facility] for possible acute CVA. Aberrantly patient had generalized weakness after he got out of truck and suddenly collapsed and was on ground for about 45 minutes until his brother found him and called EMS. Patient was taken to [facility] where he had initial CT head which was reported negative and was advised to follow-up if symptoms. Patient says that the next day he noticed increased weakness on the left side and fell again. Patient was taken to ER at [facility] again on 08/25/2017 where he had repeat CT head showed acute to subacute CVA involving right basilar ganglia. Patient was transferred to [facility] for further stroke evaluation. Patient usually follows with [facility] Patient had carotid duplex and MRI was done. MRI showed acute ischemic changes in the right coronary radiata adjacent to the right lateral ventricle extending into the posterior medial right basilar ganglia. Atropine with punctate white matter ischemic changes. LESLI was recommended as per neurology evaluation. Patient otherwise denied any cough or sputum production. No fever no chills. No recent illnesses or sick contacts. On 08/27/2017 Patient denied any complaints of chest pain or shortness of breath. Still having left-sided weakness. No fever no chills. Otherwise due to embolic nature of stroke patient is scheduled for LESLI for tomorrow. Otherwise no acute overnight issues. Patient was found have hypoglycemia this morning and insulin dose has been reduced. All other review of systems negative except the above Current medications reviewed Active Medications Acetaminophen (Tylenol Tab) 650 mg PO Q6HR PRN PRN Reason: Fever and/ or Pain Amlodipine Besylate (Norvasc) 5 mg PO DAILY [facility] Last Admin: 08/27/17 08:57 Dose: 5 mg Aspirin (Aspirin) 81 mg PO DAILY [facility] Atorvastatin Calcium (Lipitor) 80 mg PO HS [facility] Last Admin: 08/26/17 20:34 Dose: 80 mg Cholecalciferol (Vitamin D3) 1,000 unit PO DAILY@1200 [facility] Last Admin: 08/27/17 13:37 Dose: 1,000 unit Duloxetine HCl (Cymbalta) 60 mg PO DAILY [facility] Last Admin: 08/27/17 08:57 Dose: 60 mg Ezetimibe (Zetia) 10 mg PO DAILY [facility] Gabapentin (Neurontin) 600 mg PO TID [facility] Last Admin: 08/27/17 15:19 Dose: 600 mg Lisinopril/HCTZ (Zestoretic 20-25) 1 each PO DAILY [facility] Last Admin: 08/27/17 08:57 Dose: 1 each Heparin Sodium (Porcine) (Heparin) 5,000 unit SQ Q12HR [facility] Last Admin: 08/27/17 08:57 Dose: 5,000 unit Sodium Chloride (Saline 0.9%) 1,000 mls @ 50 mls/hr IV .Q20H [facility] Last Admin: 08/26/17 23:23 Dose: 50 mls/hr Insulin Aspart (Novolog) 0 unit SQ ACHS [facility] PRN Reason: Protocol Last Admin: 08/27/17 17:11 Dose: 6 unit Insulin Aspart (Novolog) 7 unit SQ AC-TID [facility] Last Admin: 08/27/17 17:11 Dose: 7 unit Insulin Detemir (Levemir) 20 unit SQ DAILY [facility] Last Admin: 08/27/17 13:10 Dose: Not Given Metformin HCl (Glucophage) 500 mg PO AC-BRKFST [facility] Last Admin: 08/27/17 06:19 Dose: Not Given Metoprolol Tartrate (Lopressor) 25 mg PO BID [facility] Last Admin: 08/27/17 08:57 Dose: 25 mg Multivitamins (Theragran) 1 each PO DAILY@1200 [facility] Last Admin: 08/27/17 13:37 Dose: 1 each Objective - Vital Signs Vital signs: Vital Signs Temp 97.7 F 08/27/17 08:00 Pulse 69 08/27/17 08:00 Resp 18 08/27/17 08:00 BP 152/74 08/27/17 08:00 Pulse Ox 95 08/27/17 08:00 Intake & Output 08/26/17 08/27/17 08/27/17 18:59 06:59 18:59 Intake Total 720 240 Output Total 1000 2300 400 Balance -280 -2300 -160 Weight 109.5 kg 113 kg Intake: Oral 720 240 Output: Urine 1000 2300 400 Other: Voiding Method Urinal Urinal - Exam Patient is lying in the bed comfortably, no acute distress, awake alert and oriented.. HEENT: Normocephalic. Neck is supple. Pupils reactive. Nostrils clear. Oral cavity is moist. Ears reveal no drainage. Neck reveals no JVD, carotid bruits, or thyromegaly. CHEST EXAMINATION: Trachea is central. Symmetrical expansion. Lung campos clear to auscultation and percussion. CARDIAC: Normal S1, S2 with no gallops. No murmurs ABDOMEN: Soft. Bowel sounds normal. No organomegaly. No abdominal bruits. Extremities: reveal no edema. No clubbing or cyanosis Neurologically awake, alert, oriented x3 with well-coordinated movements. Left- sided weakness 3/5 motor UE and 2/5 lower extremity. Skin: No rash or skin lesions. Psychiatric: Cooperative. Nonsuicidal Musculoskeletal: No joint swelling or deformity. Normal range of motion. - Labs CBC & Chem 7: 08/26/17 05:36 08/26/17 05:36 Labs: Abnormal Lab Results - Last 24 Hours (Table) 08/26/17 08/26/17 08/26/17 Range/Units 05:36 05:36 20:59 POC Glucose (mg/dL) 139 H (75-99) mg/dL Hemoglobin A1c 11.1 H (4.0-6.0) % LDL Cholesterol, Calc 109 H (0-99) mg/dL 08/27/17 08/27/17 08/27/17 Range/Units 06:13 06:36 11:18 POC Glucose (mg/dL) 44 L 53 L 411 H (75-99) mg/dL Hemoglobin A1c (4.0-6.0) % LDL Cholesterol, Calc (0-99) mg/dL Assessment and Plan Assessment: Acute ischemic CVA of right MCA with left-sided weakness Hypertension Diabetes type 2 insulin-dependent. Uncontrolled with his B A1c 11.1 Hyperlipidemia Diabetic peripheral neuropathy Hypoglycemia DVT prophylaxis Osteoarthritis Plan: Patient be continued on aspirin. Dose increased to 325 mg daily. LDL 109. MRI of the brain was done. Carotid duplex showed no significant stenosis. Neurology is following. Continue with Levemir 40 units , reduced to 20 units and added aspart 7 units 3 times a day before meals. Patient also takes metformin at home.. We'll monitor CBC closely. Avoid hypoglycemia. Patient able to tolerate oral diet. PT OT was consulted and rehab consulted as well. Patient is scheduled for LESLI tomorrow and neurology recommends loop recorder for evaluation of possible paroxysmal atrial fibrillation. Further recommendations based on the clinical course. Time with Patient: Greater than 30
[2017-08-27] MEDS: ATORVASTATIN 80 MG TAB PO SCH (21:43)
[2017-08-28] MEDS: SODIUM CHLORIDE 0.9% 1,000 ML IV SCH ×3 (00:45→21:37)
[2017-08-28 02:27] LABS: Glucose,Whole Blood 162 mg/dL (75-99)
[2017-08-28 06:35] LABS: Glucose,Whole Blood 99 mg/dL (75-99)
[2017-08-28] MEDS ORDERED: MIDAZOLAM 2 MG/2 ML VIAL ONE ×2 (09:13→11:31)
[2017-08-28] MEDS ORDERED: fentaNYL (PF) 50 MCG/ML 2 ML AMP ONE (09:14)
[2017-08-28] MEDS ORDERED: IV FLUID CONTINUATION 1,000 ML IV ONE ×2 (09:17→11:26)
[2017-08-28] MEDS: BENZOCAINE SPRAY 1 SPRAY CAN MUCOUS MEM ONE ×3 (09:21→09:31)
[2017-08-28] MEDS ORDERED: MIDAZOLAM 2 MG/2 ML VIAL IVP ONE (09:28)
[2017-08-28] MEDS ORDERED: fentaNYL (PF) 50 MCG/ML 2 ML AMP IVP ONE (09:28)
--- NOTE | 2017-08-28 09:53 | P.TEE ---
Indications for Procedure(s): CVA, rule out Cardec source of emboli Date of Procedure: 08/28/17 Preoperative Diagnosis: CVA Postoperative Diagnosis: Possible small PFO, mild mitral valve prolapse and mitral regurgitation, mild to moderate intimal plaque in the aorta Procedure(s) Performed: LESLI Description of Procedure(s): INDICATION: Patient is having LESLI to rule out Cardec source of emboli. Admitted with CVA CONSENT:. Verbal consent is obtained from the patient. No immediate family available PROCEDURE:. Patient was brought to the lab in a fasting state. He was given 2 mg of Versed and 50 g of fentanyl for conscious sedation. The throat was sprayed with Cetacaine. A lubricated Omni probe was introduced into the oropharynx and was advanced into the esophagus. Multiple views of her pain from the esophagus and also from stomach. Patient tolerated the procedure well. Color and pulse wave Doppler was performed along with saline bubble injection. FINDINGS: The aortic valve is tricuspid and function normally without stenosis or regurgitation. Mitral valves were mitral prolapse involving the anterior leaflet with evidence of mild regurgitation. Tricuspid valve appeared to be normal. Pulmonic valve is not visualized well. Interatrial septum appeared to be intact without any spontaneous shunt. Injection of the saline bubbles showed crossing of a few bubbles suggestive of a small PFO. Left ankle function appear to be normal. Left atrial appendage appeared to be free of any clot. The aorta showed mild to moderate intimal plaque IMPRESSION: #1. Possible small PFO #2. Mild mitral regurgitation with evidence of mild mitral valve prolapse #3. Normal aortic valve .# 4. No clot in left at left atrial appendage. #5. Normal LV function. #6. There is mild to moderate intimal plaque in the aorta. PLAN: Continue with antiplatelet agents/anticoagulation therapy.
[2017-08-28] MEDS ORDERED: SODIUM CHLORIDE 0.9% 1,000 ML IV SCH ×3 (10:00→10:30)
--- NOTE | 2017-08-28 10:30 | P.PN ---
Subjective Progress Note Date: 08/28/17 Principal diagnosis: CVA This is a 61-year-old right-handed white male who was in his usual state of health on Saturday. Patient states he was at home and was working outdoors when he noticed some generalized weakness. He was just not feeling well. He apparently walked to his truck and fell down and needed to have his brother helped him back into the house. He apparently went from the living room to the kitchen and collapsed again. The family decided to take him to the local hospital in [place] where he was evaluated for generalized weakness. He underwent initial computed tomography scan of the brain which was reported negative and he was advised to follow-up if symptoms recurred. Apparently the patient went home on 08/24/2017 and felt somewhat better. The next day he noticed increasing symptoms of left-sided weakness that seemed to worsen to the point that he could not lift his arm or leg very well. His brother once again had to assist him. He was taken again to the emergency room at [facility] on 08/25/2017 and had a repeat computed tomography scan of the brain performed. This CAT scan revealed areas of decreased attenuation in the right basal ganglia suggesting an acute to subacute stroke. No acute intracranial hemorrhage or midline shift was noted. Due to this finding on the follow-up computed tomography scan of the brain the patient was transferred by EMS to [facility] for further stroke evaluation. Patient denies any previous history of stroke. He does have several stroke risk factors including diabetes mellitus, hyperlipidemia, and hypertension. The patient states that he follows regularly at the [facility] in [place]. He apparently ran out of some of his medications. He states his diabetes is being treated with insulin. He is not aware of his last hemoglobin A1c. The patient was admitted to [facility] late last night. He was able to complete a MRI of the brain today. This MRI was reviewed and does reveal evidence of a acute ischemic change involving the right zaman radiata and adjacent to the right ventricle extending into the right basal ganglia. This appears to be 2 distinct areas of infarction on the MRI study today. We have reviewed the results of the MRI today with the patient. He states he continues to have significant left-sided hemiparesis. His examination today in his room this afternoon reveals him to have a left facial droop as well as significant left- sided hemiparesis involving arm and leg. Muscle strength is 2/5 on his left side. Patient's speech appears to be intact at this time. Blood pressure elevated this afternoon at 197/90, during the day today has been running in the 140s to 150s systolic. Heart rates in the 60s, he is afebrile. EKG shows a normal sinus rhythm, no evidence of any atrial fibrillation on the monitor thus far. Carotid Doppler study reveals fairly moderate atherosclerotic change bilaterally without hemodynamically significant stenosis. Echocardiogram with Doppler study was performed which revealed an ejection fraction of 55-60%. Cardiology was requested to see the patient to perform a LESLI, this will be done tomorrow by Dr. Dale. The risks and benefits were explained to the patient in detail. 08/28/2017 Patient was seen and examined this morning. Doing better this morning. Patient underwent a transesophageal echocardiographic study today which revealed possible small PFO, mild MR with evidence of mild mitral valve prolapse , normal aortic valve, no clot in the left atrial appendage, normal LV function with mild to moderate intimal plaque in the aorta. Blood pressure 199/80, heart rate in the 60s. We will increase his dose of Norvasc to 5 mg twice a day. Patient also will undergo implantation of a loop recorder today. The risks and the benefits of having the device implanted were explained to him and detail by Dr. Gutierrez. Objective - Vital Signs Vital signs: Vital Signs Temp 98.2 F 08/28/17 08:00 Pulse 65 08/28/17 08:00 Resp 20 08/28/17 08:00 BP 199/87 08/28/17 08:00 Pulse Ox 96 08/28/17 08:00 Intake & Output 08/27/17 08/28/17 08/28/17 18:59 06:59 18:59 Intake Total 1360 125 Output Total 1150 2200 Balance 210 -2200 125 Weight 111.5 kg Intake: IV 125 Intake, IV Titration 400 Amount Sodium Chloride 0.9% 1, 400 000 ml @ 50 mls/hr IV . Q20H [facility] Rx#:[id number] Oral 960 Output: Urine 1150 2200 Other: Voiding Method Urinal # Voids 1 # Bowel Movements 0 - Exam PHYSICAL EXAMINATION: HEENT: Head is atraumatic, normocephalic. Pupils equal, round. Neck is supple. There is no elevated jugular venous pressure. HEART EXAMINATION: Heart S1, S2 normal. No murmur or gallop heard. CHEST EXAMINATION: Lungs are clear to auscultation and precussion. No chest wall tenderness is noted on palpation or with deep breathing. ABDOMEN: Soft, nontender. Bowel sounds are heard. No organomegaly noted. EXTREMITIES: 2+ peripheral pulses with no evidence of peripheral edema and no calf tenderness noted. NEUROLOGIC patient is awake, alert and oriented -3. Left-sided facial droop noted. . - Labs CBC & Chem 7: 08/26/17 05:36 08/26/17 05:36 Labs: Abnormal Lab Results - Last 24 Hours (Table) 08/27/17 08/27/17 08/27/17 Range/Units 11:18 16:25 20:33 POC Glucose (mg/dL) 411 H 274 H 120 H (75-99) mg/dL 08/28/17 Range/Units 02:10 POC Glucose (mg/dL) 162 H (75-99) mg/dL Assessment and Plan Plan: Assessment and plan #1 acute right arterial ischemic stroke #2 diabetes #3 hypertension #4 hyperlipidemia Plan LESLI was performed today which revealed a possible small PFO, mild mitral regurg with evidence of mild mitral valve prolapse, normal aortic valve, no clot in the left atrial appendage, normal LV, mild to moderate intimal plaque in the aorta. Blood pressure 200/90 today, we will increase the dose of Norvasc to 5 mg twice a day. Patient will also undergo implantation of a loop recorder today. DNP note has been reviewed, I agree with a documented findings and plan of care. Patient was seen and examined.
[2017-08-28] MEDS: ceFAZolin 1,000 MG in DEXTROSE/WATER 1 50ML.BAG IVPB SCH ×3 (11:26→23:29)
--- NOTE | 2017-08-28 11:30 | P.PN ---
Progress Note - Text Patient evaluated today. Stable from a cardiac vascular standpoint. Underwent LESLI LESLI revealed possible small PFO Mild MVP with mitral regurgitation which is mild Normal aortic valve No intracardiac mass or thrombus Mild to moderate intimal plaque in the aorta Impression Embolic CVA insulin-requiring type 2 diabetes Diabetic peripheral neuropathy Hypertension Plan In view of the embolic stroke and the presence of mitral prolapse I would proceed with implantation of loop monitor for cryptogenic stroke, looking for silent atrial fibrillation hypertension management of May increase amlodipine today Statin therapy along with Zetia Baby aspirin
[2017-08-28] MEDS ORDERED: MIDAZOLAM 2 MG/2 ML VIAL IV ONE (11:32)
[2017-08-28] MEDS ORDERED: LIDOCAINE 1% INJ 10MG/ML (20 ML MDV) SQ ONE (11:33)
--- NOTE | 2017-08-28 11:46 | P.PCN ---
Preoperative Diagnosis: Loop monitor implant Primary physicians: Manual Writer: Dr. Joe Indication: Cryptogenic stroke Patient was brought to the EP lab in a fasting state. Written informed consent was obtained prior to the procedure. The left pectoral area was prepped and draped per protocol. Intravenous antibiotic was administered preoperatively. A subcutaneous Loop monitor was implanted successfully and the wound was closed per protocol. The device was programmed to detect significant kinjal- arrhythmic and tachy-arrhythmic events, per protocol. Device and programming details: Programmed to detect silent atrial fibrillation and bradycardia arrhythmias Patient underwent EP procedure under conscious sedation/moderate sedation, monitoring of the level of consciousness and physiologic parameters including but not limited to vital signs and oxygenation. Patient tolerated the procedure well without any acute complications. Start time: 1132 Stop time: 1142
[2017-08-28 12:04] LABS: Glucose,Whole Blood 122 mg/dL (75-99)
[2017-08-28] MEDS: INSULIN ASPART 100 UNIT/ML 1 ML 10 ML VIAL SQ SCH ×7 (12:25→21:36)
[2017-08-28] MEDS: METOPROLOL TARTRATE 25 MG TAB PO SCH ×2 (12:28→21:37)
[2017-08-28] MEDS: metFORMIN 500 MG TAB PO SCH (12:29)
[2017-08-28] MEDS: DULoxetine HCL 60 MG CAPSULE.DR PO SCH (12:29)
[2017-08-28] MEDS: ASPIRIN 81 MG PO SCH (12:29)
[2017-08-28] MEDS: LISINOPRIL-HCTZ 20-25 MG 1 EACH TAB PO SCH (12:29)
[2017-08-28] MEDS: GABAPENTIN 300 MG CAP PO SCH ×3 (12:29→21:37)
[2017-08-28] MEDS: EZETIMIBE 10 MG TAB PO SCH (12:29)
[2017-08-28] MEDS: HEPARIN SODIUM,PORCINE 5,000 UNIT/ML 1 ML VIAL SQ SCH ×2 (12:30→21:37)
[2017-08-28] MEDS: CHOLECALCIFEROL 1,000 UNIT TAB PO SCH (12:31)
[2017-08-28] MEDS: MULTIVITAMINS, THERA 1 EACH TAB PO SCH (12:31)
[2017-08-28] MEDS: INSULIN DETEMIR 100 UNIT/ML 10 ML VIAL SQ SCH (12:37)
[2017-08-28 16:37] LABS: Glucose,Whole Blood 240 mg/dL (75-99)
[2017-08-28 21:08] LABS: Glucose,Whole Blood 115 mg/dL (75-99)
[2017-08-28] MEDS: ATORVASTATIN 80 MG TAB PO SCH (21:37)
[2017-08-28] MEDS: amLODIPine 5 MG TAB PO SCH ×2 (21:37→21:40)
--- NOTE | 2017-08-29 00:38 | P.PN ---
Subjective Progress Note Date: 08/28/17 This patient is a 61-year-old male who recently suffered an acute right hemispheric stroke. The patient underwent MRI of the brain yesterday which did reveal evidence of 2 areas of acute ischemic stroke. We had recommended cardiology consultation for evaluation of need for LESLI procedure. He was seen by cardiology today and is being scheduled for LESLI procedure today. They are monitoring his blood pressure closely at this time. The patient was seen today by Dr. Braswell for possible inpatient rehab placement. He is awaiting further assessment from PT /OT and may be a good candidate for inpatient rehab at the time of discharge. Patient states he has been doing fairly well with slight improvement with this left-sided weakness. He is to continue on his aspirin and atorvastatin at this time for secondary stroke prevention. We will await further evaluation from cardiology and the LESLI testing to be completed today and will await their further recommendations from cardiology. The patient did undergo LESLI procedure today. The LESLI revealed possible small PFO, with mild MR with evidence of mild mitral valve prolapse. Normal aortic valve with no clot in the left atrial appendage. Patient had normal LV function with mild to moderate intimal plaque in the aorta. Blood pressure remained elevated today in the cardiologists have increased his Norvasc to 5 mg twice a day. Patient also underwent a implantation of a loop recorder today. Would recommend placing this patient on dual platelet therapy with Plavix and aspirin. We will await further recommendations from cardiology if he needs long-term anticoagulation. We will continue close neurological follow-up for the patient. His overall prognosis at this time remains guarded. Objective - Vital Signs Vital signs: Vital Signs Temp 97.1 F L 08/28/17 15:57 Pulse 63 08/28/17 15:57 Resp 20 08/28/17 15:57 BP 157/82 08/28/17 15:57 Pulse Ox 94 L 08/28/17 15:57 Intake & Output 08/28/17 08/28/17 08/29/17 06:59 18:59 06:59 Intake Total 1295 Output Total 2200 400 Balance -2200 895 Weight 111.5 kg Intake: IV 175 Intake, IV Titration 400 Amount Sodium Chloride 0.9% 1, 400 000 ml @ 50 mls/hr IV . Q20H [facility] Rx#:[id number] Oral 720 Output: Urine 2200 400 Other: Voiding Method Urinal # Voids 1 # Bowel Movements 0 - Exam Physical examination: PHYSICAL EXAMINATION: Patient is resting comfortably in bed. VITAL SIGNS: Blood pressure is [173/83]. Heart rate is [72]. Respiration is [18] . Temperature is [98.4]. HEENT: Head is atraumatic, neck is supple, there were no carotid bruits. CHEST: Lungs are clear to auscultation and percussion. CARDIAC: S1, S2 normal rate and rhythm. There is no murmur. ABDOMEN: Soft and nontender. Bowel sounds are present. EXTREMITIES: There is no pedal edema. Peripheral pulses are present. Neurological examination: Patient's neurological examination today shows slight improvement with left- sided hemiparesis. - Labs CBC & Chem 7: 08/26/17 05:36 08/26/17 05:36 Labs: Abnormal Lab Results - Last 24 Hours (Table) 08/28/17 08/28/17 08/28/17 Range/Units 02:10 12:00 16:34 POC Glucose (mg/dL) 162 H 122 H 240 H (75-99) mg/dL 08/28/17 Range/Units 21:07 POC Glucose (mg/dL) 115 H (75-99) mg/dL Assessment and Plan (1) Acute right arterial ischemic stroke, MCA (middle cerebral artery) Current Visit: Yes Status: Acute Code(s): I63.511 - CEREB INFRC D/T UNSP OCCLS OR STENOS OF RIGHT MID CEREB ART SNOMED Code(s): 384019221 (2) Diabetes mellitus Current Visit: Yes Status: Acute Code(s): E11.9 - TYPE 2 DIABETES MELLITUS WITHOUT COMPLICATIONS SNOMED Code(s): 14357277 (3) Hyperlipidemia Current Visit: Yes Status: Acute Code(s): E78.5 - HYPERLIPIDEMIA, UNSPECIFIED SNOMED Code(s): 61359548 (4) Hypertension Current Visit: Yes Status: Acute Code(s): I10 - ESSENTIAL (PRIMARY) HYPERTENSION SNOMED Code(s): 19870065 Plan: This patient is a 61-year-old male admitted with acute right hemispheric stroke. Patient underwent MRI of the brain which did reveal evidence of acute ischemic change involving the right zaman radiata as well as adjacent right ventricle area extending into the basal ganglia. This finding suggested possibility of cardioembolic stroke. Patient was sent for LESLI procedure today which revealed a possible small PFO with mild mitral regurgitation and mitral valve prolapse. Normal aortic valve was noted. Patient continued to have slightly elevated blood pressure. His dose of Norvasc was increased today to twice a day. He underwent implantation of the loop recorder today for further management and monitoring for cryptogenic stroke. Patient neurologically showing improvement with left-sided hemiparesis. He we are waiting further recommendations from Dr. Gabriel considering inpatient rehab placement. We would recommend the patient to be on dual platelet therapy with Plavix and aspirin. We will await further recommendations from cardiology. His overall prognosis at this time remains guarded.
[2017-08-29 05:59] LABS: Glucose,Whole Blood 129 mg/dL (75-99)
[2017-08-29] MEDS: INSULIN ASPART 100 UNIT/ML 1 ML 10 ML VIAL SQ SCH ×4 (06:30→12:09)
[2017-08-29] MEDS: metFORMIN 500 MG TAB PO SCH (07:05)
[2017-08-29] MEDS: CHOLECALCIFEROL 1,000 UNIT TAB PO SCH (08:11)
[2017-08-29] MEDS: MULTIVITAMINS, THERA 1 EACH TAB PO SCH (08:11)
[2017-08-29] MEDS: METOPROLOL TARTRATE 25 MG TAB PO SCH (08:11)
[2017-08-29] MEDS: LISINOPRIL-HCTZ 20-25 MG 1 EACH TAB PO SCH (08:11)
[2017-08-29] MEDS: ceFAZolin 1,000 MG in DEXTROSE/WATER 1 50ML.BAG IVPB SCH (08:12)
[2017-08-29] MEDS: amLODIPine 5 MG TAB PO SCH (08:12)
[2017-08-29] MEDS: HEPARIN SODIUM,PORCINE 5,000 UNIT/ML 1 ML VIAL SQ SCH (08:12)
[2017-08-29] MEDS: DULoxetine HCL 60 MG CAPSULE.DR PO SCH (08:12)
[2017-08-29] MEDS: GABAPENTIN 300 MG CAP PO SCH ×2 (08:12→15:54)
[2017-08-29] MEDS: ASPIRIN 81 MG PO SCH (08:12)
[2017-08-29] MEDS: EZETIMIBE 10 MG TAB PO SCH (08:12)
[2017-08-29] MEDS: INSULIN DETEMIR 100 UNIT/ML 10 ML VIAL SQ SCH (08:15)
[2017-08-29] MEDS ORDERED: CLOPIDOGREL 75 MG TAB PO SCH (09:00)
[2017-08-29 10:16] VITALS: RESP 20
[2017-08-29 12:01] LABS: Glucose,Whole Blood 130 mg/dL (75-99)
[2017-08-29] MEDS: SODIUM CHLORIDE 0.9% 1,000 ML IV SCH (12:06)
[2017-08-29 12:13] VITALS: BP 129/75; PULSE 74; TEMP 98
--- NOTE | 2017-08-29 14:10 | P.PN ---
Subjective Progress Note Date: 08/28/17 Principal diagnosis: Acute CVA with left-sided weakness Patient is a 61-year-old male with a known history of hypertension, diabetes type 2 insulin-dependent and diabetic peripheral neuropathy was sent from [facility] for possible acute CVA. Aberrantly patient had generalized weakness after he got out of truck and suddenly collapsed and was on ground for about 45 minutes until his brother found him and called EMS. Patient was taken to [facility] where he had initial CT head which was reported negative and was advised to follow-up if symptoms. Patient says that the next day he noticed increased weakness on the left side and fell again. Patient was taken to ER at [facility] again on 08/25/2017 where he had repeat CT head showed acute to subacute CVA involving right basilar ganglia. Patient was transferred to [facility] for further stroke evaluation. Patient usually follows with [facility] Patient had carotid duplex and MRI was done. MRI showed acute ischemic changes in the right coronary radiata adjacent to the right lateral ventricle extending into the posterior medial right basilar ganglia. Atropine with punctate white matter ischemic changes. LESLI was recommended as per neurology evaluation. Patient otherwise denied any cough or sputum production. No fever no chills. No recent illnesses or sick contacts. On 08/27/2017 Patient denied any complaints of chest pain or shortness of breath. Still having left-sided weakness. No fever no chills. Otherwise due to embolic nature of stroke patient is scheduled for LESLI for tomorrow. Otherwise no acute overnight issues. Patient was found have hypoglycemia this morning and insulin dose has been reduced.\\ 08/28/2017 Today patient denied any complaints of chest pain or shortness of breath. Left lower extremity strength slightly improved otherwise. Patient had a LESLI done which showed possible small PFO with mild mitral regurgitation and mitral valve prolapse. Normal aortic valve was noted. Patient had low-grader patrol placed as well. Blood pressure is still elevated otherwise. Norvasc dose Increased to twice daily. Tolerating oral diet. No nausea vomiting or abdominal pain. No other acute overnight issues. All other review of systems negative except the above Current medications reviewed Active Medications Acetaminophen (Tylenol Tab) 650 mg PO Q6HR PRN PRN Reason: Fever and/ or Pain Amlodipine Besylate (Norvasc) 5 mg PO DAILY [facility] Last Admin: 08/27/17 08:57 Dose: 5 mg Aspirin (Aspirin) 81 mg PO DAILY [facility] Atorvastatin Calcium (Lipitor) 80 mg PO HS [facility] Last Admin: 08/26/17 20:34 Dose: 80 mg Cholecalciferol (Vitamin D3) 1,000 unit PO DAILY@1200 [facility] Last Admin: 08/27/17 13:37 Dose: 1,000 unit Duloxetine HCl (Cymbalta) 60 mg PO DAILY [facility] Last Admin: 08/27/17 08:57 Dose: 60 mg Ezetimibe (Zetia) 10 mg PO DAILY [facility] Gabapentin (Neurontin) 600 mg PO TID [facility] Last Admin: 08/27/17 15:19 Dose: 600 mg Lisinopril/HCTZ (Zestoretic 20-25) 1 each PO DAILY [facility] Last Admin: 08/27/17 08:57 Dose: 1 each Heparin Sodium (Porcine) (Heparin) 5,000 unit SQ Q12HR [facility] Last Admin: 08/27/17 08:57 Dose: 5,000 unit Sodium Chloride (Saline 0.9%) 1,000 mls @ 50 mls/hr IV .Q20H [facility] Last Admin: 08/26/17 23:23 Dose: 50 mls/hr Insulin Aspart (Novolog) 0 unit SQ ACHS [facility] PRN Reason: Protocol Last Admin: 08/27/17 17:11 Dose: 6 unit Insulin Aspart (Novolog) 7 unit SQ AC-TID [facility] Last Admin: 08/27/17 17:11 Dose: 7 unit Insulin Detemir (Levemir) 20 unit SQ DAILY [facility] Last Admin: 08/27/17 13:10 Dose: Not Given Metformin HCl (Glucophage) 500 mg PO AC-BRKFST [facility] Last Admin: 08/27/17 06:19 Dose: Not Given Metoprolol Tartrate (Lopressor) 25 mg PO BID [facility] Last Admin: 08/27/17 08:57 Dose: 25 mg Multivitamins (Theragran) 1 each PO DAILY@1200 [facility] Last Admin: 08/27/17 13:37 Dose: 1 each Objective - Vital Signs Vital signs: Vital Signs Temp 97.1 F L 08/28/17 15:57 Pulse 63 08/28/17 15:57 Resp 20 08/28/17 15:57 BP 157/82 08/28/17 15:57 Pulse Ox 94 L 08/28/17 15:57 Intake & Output 08/28/17 08/28/17 08/29/17 06:59 18:59 06:59 Intake Total 1295 Output Total 2200 400 Balance -2200 895 Weight 111.5 kg Intake: IV 175 Intake, IV Titration 400 Amount Sodium Chloride 0.9% 1, 400 000 ml @ 50 mls/hr IV . Q20H [facility] Rx#:[id number] Oral 720 Output: Urine 2200 400 Other: Voiding Method Urinal # Voids 1 # Bowel Movements 0 - Exam Patient is lying in the bed comfortably, no acute distress, awake alert and oriented.. HEENT: Normocephalic. Neck is supple. Pupils reactive. Nostrils clear. Oral cavity is moist. Ears reveal no drainage. Neck reveals no JVD, carotid bruits, or thyromegaly. CHEST EXAMINATION: Trachea is central. Symmetrical expansion. Lung campos clear to auscultation and percussion. CARDIAC: Normal S1, S2 with no gallops. No murmurs ABDOMEN: Soft. Bowel sounds normal. No organomegaly. No abdominal bruits. Extremities: reveal no edema. No clubbing or cyanosis Neurologically awake, alert, oriented x3 with well-coordinated movements. Left- sided weakness 3/5 motor UE and 2/5 lower extremity. Skin: No rash or skin lesions. Psychiatric: Cooperative. Nonsuicidal Musculoskeletal: No joint swelling or deformity. Normal range of motion. - Labs CBC & Chem 7: 08/26/17 05:36 08/26/17 05:36 Labs: Abnormal Lab Results - Last 24 Hours (Table) 08/28/17 08/28/17 08/28/17 Range/Units 02:10 12:00 16:34 POC Glucose (mg/dL) 162 H 122 H 240 H (75-99) mg/dL Assessment and Plan Assessment: Acute ischemic CVA of right MCA with left-sided weakness Hypertension uncontrolled Diabetes type 2 insulin-dependent. Uncontrolled with his B A1c 11.1 Hyperlipidemia Diabetic peripheral neuropathy Hypoglycemia DVT prophylaxis Osteoarthritis Plan: Patient be continued on aspirin. Dose increased to 325 mg daily. LDL 109. MRI of the brain was done. Carotid duplex showed no significant stenosis. Neurology is following. Continue with Levemir 40 units , reduced to 20 units and added aspart 7 units 3 times a day before meals. Patient also takes metformin at home.. We'll monitor CBC closely. Avoid hypoglycemia. Patient able to tolerate oral diet. PT OT was consulted and rehab consulted as well. Further recommendations based on the clinical course. Time with Patient: Greater than 30
--- NOTE | 2017-08-29 14:19 | P.DS ---
Providers Date of admission: 08/26/17 00:37 Expected date of discharge: 08/29/17 Attending physician: Raimundo Mackay Consults: 08/26/17 01:49 Consult Physician Routine Consulting Provider: Lisandra Corey Consult Reason/Comments: left side weakness Do you want consulting provider notified?: Already Contacted Placement Type Exists?: Yes 08/26/17 15:07 Consult Physician Routine Consulting Provider: Beto Braswell Consult Reason/Comments: eval for inpatient rehab Do you want consulting provider notified?: Yes 08/27/17 08:00 Consult Physician Routine Consulting Provider: Jos Gutierrez Consult Reason/Comments: Acute stroke, evaluate for LESLI procedure. Do you want consulting provider notified?: Yes Primary care physician: Beto Olivera [facility] Course: Discharge diagnosis Acute ischemic CVA of right MCA with left-sided weakness Hypertension uncontrolled Diabetes type 2 insulin-dependent. Uncontrolled with his B A1c 11.1 Hyperlipidemia Diabetic peripheral neuropathy Hypoglycemia DVT prophylaxis Osteoarthritis Patient is a 61-year-old male with a known history of hypertension, diabetes type 2 insulin-dependent and diabetic peripheral neuropathy was sent from [facility] for possible acute CVA. Aberrantly patient had generalized weakness after he got out of truck and suddenly collapsed and was on ground for about 45 minutes until his brother found him and called EMS. Patient was taken to [facility] where he had initial CT head which was reported negative and was advised to follow-up if symptoms. Patient says that the next day he noticed increased weakness on the left side and fell again. Patient was taken to ER at [facility] again on 08/25/2017 where he had repeat CT head showed acute to subacute CVA involving right basilar ganglia. Patient was transferred to [facility] for further stroke evaluation. Patient usually follows with [facility] Patient had carotid duplex and MRI was done. MRI showed acute ischemic changes in the right coronary radiata adjacent to the right lateral ventricle extending into the posterior medial right basilar ganglia. Atropine with punctate white matter ischemic changes. LESLI was recommended as per neurology evaluation. Patient otherwise denied any cough or sputum production. No fever no chills. No recent illnesses or sick contacts. On 08/27/2017 Patient denied any complaints of chest pain or shortness of breath. Still having left-sided weakness. No fever no chills. Otherwise due to embolic nature of stroke patient is scheduled for LESLI for tomorrow. Otherwise no acute overnight issues. Patient was found have hypoglycemia this morning and insulin dose has been reduced.\\ 08/28/2017 Today patient denied any complaints of chest pain or shortness of breath. Left lower extremity strength slightly improved otherwise. Patient had a LESLI done which showed possible small PFO with mild mitral regurgitation and mitral valve prolapse. Normal aortic valve was noted. Patient had low-grades 6 through 8 teacher placed as well. Blood pressure is still elevated otherwise. Norvasc dose Increased to twice daily. Tolerating oral diet. No nausea vomiting or abdominal pain. No other acute overnight issues. Patient was be continued on aspirin. Plavix was added. LDL 109. Patient was already started on statins. MRI of the brain was done. Carotid duplex showed no significant stenosis. Neurology has seen the patient. Continued with Levemir 40 units . Patient had hypoglycemia and dose, reduced to 20 units and added aspart 7 units 3 times a day before meals. Patient also takes metformin at home.. Patient able to tolerate oral diet. PT OT was consulted and rehab consulted as well. Patient does qualify for inpatient rehab. Patient is being discharged to rehab in stable condition. Physical examination Vital Signs 08/26/17 08/26/17 08/26/17 00:52 01:15 01:52 Temperature 98.2 F Pulse Rate [ Intensive Care Medicine Specialist ] Pulse Rate [ Pulse Oximetery ] Pulse Rate [ 62 Right Radial] Respiratory 18 Rate Blood Pressure 183/81 188/78 [Left Arm] Blood Pressure 192/99 212/88 178/80 [Right Arm] O2 Sat by Pulse 96 Oximetry 08/26/17 08/26/17 08/26/17 04:00 08:10 11:00 Temperature 97.8 F 98.3 F Pulse Rate [ 65 75 Intensive Care Medicine Specialist ] Pulse Rate [ Pulse Oximetery ] Pulse Rate [ 61 Right Radial] Respiratory 18 16 16 Rate Blood Pressure [Left Arm] Blood Pressure 164/97 175/78 223/92 [Right Arm] O2 Sat by Pulse 94 L 94 L 97 Oximetry 08/26/17 08/26/17 08/27/17 15:00 20:00 00:00 Temperature 98.7 F Pulse Rate [ 64 71 Intensive Care Medicine Specialist ] Pulse Rate [ Pulse Oximetery ] Pulse Rate [ 71 64 Right Radial] Respiratory 16 18 18 Rate Blood Pressure [Left Arm] Blood Pressure 174/84 185/81 169/79 [Right Arm] O2 Sat by Pulse 94 L 93 L 92 L Oximetry 08/27/17 08/27/17 08/27/17 04:00 08:00 12:00 Temperature 97 F L 97.7 F 97.3 F L Pulse Rate [ Intensive Care Medicine Specialist ] Pulse Rate [ 69 61 Pulse Oximetery ] Pulse Rate [ 61 Right Radial] Respiratory 18 18 18 Rate Blood Pressure [Left Arm] Blood Pressure 148/77 152/74 197/90 [Right Arm] O2 Sat by Pulse 94 L 95 93 L Oximetry 08/27/17 08/27/17 08/28/17 16:00 20:00 00:00 Temperature 98.4 F 98.7 F Pulse Rate [ Intensive Care Medicine Specialist ] Pulse Rate [ 72 81 63 Pulse Oximetery ] Pulse Rate [ Right Radial] Respiratory 18 18 18 Rate Blood Pressure [Left Arm] Blood Pressure 173/83 177/75 176/87 [Right Arm] O2 Sat by Pulse 93 L 96 92 L Oximetry 08/28/17 08/28/17 08/28/17 04:00 08:00 10:26 Temperature 98.2 F Pulse Rate [ Intensive Care Medicine Specialist ] Pulse Rate [ 54 L 65 75 Pulse Oximetery ] Pulse Rate [ Right Radial] Respiratory 18 20 20 Rate Blood Pressure 174/74 199/87 160/76 [Left Arm] Blood Pressure [Right Arm] O2 Sat by Pulse 93 L 96 94 L Oximetry 08/28/17 08/28/17 08/28/17 11:46 15:57 20:00 Temperature 97 F L 97.1 F L 98.3 F Pulse Rate [ Intensive Care Medicine Specialist ] Pulse Rate [ 62 63 69 Pulse Oximetery ] Pulse Rate [ Right Radial] Respiratory 20 20 18 Rate Blood Pressure 176/79 157/82 169/77 [Left Arm] Blood Pressure [Right Arm] O2 Sat by Pulse 95 94 L 96 Oximetry 08/29/17 08/29/17 08/29/17 00:00 04:00 08:00 Temperature 98.0 F 98.0 F 98.4 F Pulse Rate [ Intensive Care Medicine Specialist ] Pulse Rate [ 71 65 72 Pulse Oximetery ] Pulse Rate [ Right Radial] Respiratory 18 18 20 Rate Blood Pressure 158/83 161/71 191/82 [Left Arm] Blood Pressure [Right Arm] O2 Sat by Pulse 96 95 91 L Oximetry 08/29/17 12:00 Temperature 98 F Pulse Rate [ Intensive Care Medicine Specialist ] Pulse Rate [ 74 Pulse Oximetery ] Pulse Rate [ Right Radial] Respiratory 20 Rate Blood Pressure 129/75 [Left Arm] Blood Pressure [Right Arm] O2 Sat by Pulse 92 L Oximetry Patient is lying in the bed comfortably, no acute distress, awake alert and oriented.. HEENT: Normocephalic. Neck is supple. Pupils reactive. Nostrils clear. Oral cavity is moist. Ears reveal no drainage. Neck reveals no JVD, carotid bruits, or thyromegaly. CHEST EXAMINATION: Trachea is central. Symmetrical expansion. Lung campos clear to auscultation and percussion. CARDIAC: Normal S1, S2 with no gallops. No murmurs ABDOMEN: Soft. Bowel sounds normal. No organomegaly. No abdominal bruits. Extremities: reveal no edema. No clubbing or cyanosis Neurologically awake, alert, oriented x3 with well-coordinated movements. Left- sided weakness 3/5 motor UE and 2/5 lower extremity. Skin: No rash or skin lesions. Psychiatric: Cooperative. Nonsuicidal Musculoskeletal: No joint swelling or deformity. Normal range of motion. Total time taken greater than 35 minutes including 18 minutes for counseling and coordination of care. Patient Condition at Discharge: Good Plan - Discharge Summary New Discharge Prescriptions: New amLODIPine [Norvasc] 5 mg PO BID #60 tab Clopidogrel [Plavix] 75 mg PO DAILY #30 tab Ezetimibe [Zetia] 10 mg PO DAILY #30 tab Insulin Aspart [NovoLOG (formulary)] 7 unit SQ AC-TID vial Insulin Detemir [Levemir] 20 unit SQ DAILY syr metFORMIN HCL [Glucophage] 500 mg PO AC-BRKFST tab Continue Multivitamin [Men's Multi-Vitamin] 1 tab PO DAILY Gabapentin [Neurontin] 600 mg PO TID Lisinopril-Hctz 20-25 mg [Zestoretic 20-25] 2 tab PO DAILY DULoxetine HCL [Cymbalta] 60 mg PO DAILY Aspirin [Adult Low Dose Aspirin EC] 162 mg PO DAILY Insulin Aspart [NovoLOG Flexpen] See Protocol SQ AC-TID Metoprolol Tartrate [Lopressor] 25 mg PO BID Cholecalciferol [Vitamin D3] 1,000 unit PO DAILY Atorvastatin [Lipitor] 80 mg PO HS Discontinued metFORMIN HCL [Glucophage] 500 mg PO DAILY Insulin Glargine [Lantus] 40 unit SQ HS Insulin Aspart [NovoLOG (formulary)] 12 unit SQ AC-TID Discharge Medication List Aspirin [Adult Low Dose Aspirin EC] 162 mg PO DAILY 08/26/17 [History] Atorvastatin [Lipitor] 80 mg PO HS 08/26/17 [History] Cholecalciferol [Vitamin D3] 1,000 unit PO DAILY 08/26/17 [History] DULoxetine HCL [Cymbalta] 60 mg PO DAILY 08/26/17 [History] Gabapentin [Neurontin] 600 mg PO TID 08/26/17 [History] Insulin Aspart [NovoLOG Flexpen] See Protocol SQ AC-TID 08/26/17 [History] Lisinopril-Hctz 20-25 mg [Zestoretic 20-25] 2 tab PO DAILY 08/26/17 [History] Metoprolol Tartrate [Lopressor] 25 mg PO BID 08/26/17 [History] Multivitamin [Men's Multi-Vitamin] 1 tab PO DAILY 08/26/17 [History] Clopidogrel [Plavix] 75 mg PO DAILY #30 tab 08/29/17 [Rx] Ezetimibe [Zetia] 10 mg PO DAILY #30 tab 08/29/17 [Rx] Insulin Aspart [NovoLOG (formulary)] 7 unit SQ AC-TID vial 08/29/17 [Rx] Insulin Detemir [Levemir] 20 unit SQ DAILY syr 08/29/17 [Rx] amLODIPine [Norvasc] 5 mg PO BID #60 tab 08/29/17 [Rx] metFORMIN HCL [Glucophage] 500 mg PO AC-BRKFST tab 08/29/17 [Rx] Follow up Appointment(s)/Referral(s): Jos Gutierrez MD [STAFF PHYSICIAN] - 6 Weeks Lisandra Corey MD [STAFF PHYSICIAN] - 1 Week Patient Instructions/Handouts: Stroke (DC) Activity/Diet/Wound Care/Special Instructions: May go home from a cardiac standpoint Follow-up in the cardiac G office, device clinic 5 days post discharge for suture removal Follow-up with Dr. Joe in 6 weeks Discharge Disposition: TRANSFER TO SNF/ECF
== END 2017-08-29 17:05 | DRG 41 ==
LOC: 6SEL 08-26 00:37
PROVIDERS: ADMIT Hospitalist; ATTEND Hospitalist
PROC: B24BZZ4 Ultrasonography of Heart with Aorta, Transesophageal (ICD-10-PCS; 2017-08-28)
PROC: 0JH632Z Insertion of Monitoring Device into Chest Subcutaneous Tissue and Fascia, Percutaneous Approach (ICD-10-PCS; principal; 2017-08-28 09:15)
DX: I63.40 Cerebral infarction due to embolism of unspecified cerebral artery (principal); G81.94 Hemiplegia, unspecified affecting left nondominant side; E11.42 Type 2 diabetes mellitus with diabetic polyneuropathy; E11.649 Type 2 diabetes mellitus with hypoglycemia without coma; Q21.1 Atrial septal defect; F17.200 Nicotine dependence, unspecified, uncomplicated; I34.0 Nonrheumatic mitral (valve) insufficiency; R29.810 Facial weakness; E11.65 Type 2 diabetes mellitus with hyperglycemia; I10 Essential (primary) hypertension; E78.5 Hyperlipidemia, unspecified; M19.90 Unspecified osteoarthritis, unspecified site; Z88.1 Allergy status to other antibiotic agents; Z79.899 Other long term (current) drug therapy; Z79.4 Long term (current) use of insulin; Z79.82 Long term (current) use of aspirin
CPT/HCPCS: 33282; 70551; 80053; 80061; 83036; 83735; 84100; 85025; 93306; 93312; 93320; 93325; 93880; 95819